=== PATIENT | male | born 1930 | race Caucasian/White ===

== ENCOUNTER 2016-03-18 | Outpatient (CLI) | END 2016-03-18 03:13 | disposition critical access hospital (66) | CPT/HCPCS: A0425; A0427 ==

== ENCOUNTER 2016-03-18 03:37 | Inpatient (IN) | payer MEDICARE ==
[2016-03-18] MEDS ORDERED: SODIUM CHLORIDE 0.9% 500 ML IV STA (04:26)
[2016-03-18] MEDS ORDERED: PROCHLORPERAZINE 10 MG/2 ML VIAL IVP PRN (06:56)
[2016-03-18] MEDS ORDERED: PHYTONADIONE 10 MG/ML AMP PO SCH (06:56)
[2016-03-18] MEDS ORDERED: ACETAMINOPHEN 325 MG TABLET PO PRN (06:56)
[2016-03-18] MEDS ORDERED: HYDROmorphone 1 MG/ML SYRINGE IVP PRN (06:56)
[2016-03-18] MEDS ORDERED: SODIUM CHLORIDE FLUSH 0.9% 10 ML SYRINGE IVP PRN (06:56)
[2016-03-18] MEDS ORDERED: HYDROcod/ACETAM 5/325 MG TABLET PO PRN (06:56)
[2016-03-18] MEDS ORDERED: ONDANSETRON ODT 4 MG TABLET TL PRN (06:56)
[2016-03-18] MEDS ORDERED: SODIUM CHLORIDE 0.9% 1,000 ML IV SCH ×2 (06:56→14:00)
[2016-03-18] MEDS ORDERED: ONDANSETRON 4 MG/2 ML VIAL IVP PRN (06:56)
[2016-03-18] MEDS: PANTOPRAZOLE 40 MG TABLET PO SCH (07:01)
[2016-03-18] MEDS: LEVOTHYROXINE 75 MCG TABLET PO SCH (08:24)
[2016-03-18] MEDS ORDERED: POLYETHYLENE GLYCOL 3350 17 GM PACKET PO SCH (09:00)
[2016-03-18] MEDS: SODIUM CHLORIDE FLUSH 0.9% 10 ML SYRINGE IVP SCH ×4 (11:03→23:48)
[2016-03-18] MEDS: ATENOLOL 25 MG TABLET PO SCH (11:34)
[2016-03-18] MEDS ORDERED: PHYTONADIONE INJ (ADULT) 10 MG in SODIUM CHLORIDE 0.9% 50 ML IV STA (14:12)
[2016-03-18] MEDS ORDERED: PEG 3350/NA SULF,BICARB,CL/KCL 4,000 ML BOTTLE PO ONE (14:30)
[2016-03-18] MEDS ORDERED: DEXTROSE 5%-0.45% NACL 1,000 ML IV SCH (22:00)
[2016-03-19] MEDS: LEVOTHYROXINE 75 MCG TABLET PO SCH (06:09)
[2016-03-19] MEDS: PANTOPRAZOLE 40 MG TABLET PO SCH (06:09)
[2016-03-19] MEDS: ATENOLOL 25 MG TABLET PO SCH (08:13)
[2016-03-19] MEDS ORDERED: LACTATED RINGERS 1,000 ML IV ONE (10:44)
[2016-03-19] MEDS ORDERED: LIDOCAINE-MPF 2% 5 ML VIAL IM ONE (11:50)
[2016-03-19] MEDS ORDERED: PROPOFOL 200 MG/20 ML VIAL IVP ONE (11:50)
[2016-03-19] MEDS ORDERED: GLUCAGON 1 MG/ML VIAL IM ONE (11:50)
[2016-03-19] MEDS ORDERED: SODIUM CHLORIDE FLUSH 0.9% 10 ML SYRINGE IVP PRN (12:25)
[2016-03-19] MEDS ORDERED: HYDROmorphone 1 MG/ML SYRINGE IVP PRN (12:25)
[2016-03-19] MEDS ORDERED: HYDROcod/ACETAM 5/325 MG TABLET PO PRN (12:25)
[2016-03-19] MEDS ORDERED: DEXTROSE 5%-0.45% NACL 1,000 ML IV SCH (12:25)
[2016-03-19] MEDS ORDERED: ACETAMINOPHEN 325 MG TABLET PO PRN (12:25)
[2016-03-19] MEDS ORDERED: PROCHLORPERAZINE 10 MG/2 ML VIAL IVP PRN (12:25)
[2016-03-19] MEDS ORDERED: ONDANSETRON ODT 4 MG TABLET TL PRN (12:25)
[2016-03-19] MEDS ORDERED: ONDANSETRON 4 MG/2 ML VIAL IVP PRN (12:25)
[2016-03-19] MEDS ORDERED: SODIUM CHLORIDE FLUSH 0.9% 10 ML SYRINGE IVP SCH (14:00)
[2016-03-20] MEDS ORDERED: LEVOTHYROXINE 75 MCG TABLET PO SCH (07:00)
[2016-03-20] MEDS ORDERED: PANTOPRAZOLE 40 MG TABLET PO SCH (07:00)
[2016-03-20] MEDS ORDERED: ATENOLOL 25 MG TABLET PO SCH (09:00)
== END 2016-03-19 15:00 | disposition home or self-care (01) | DRG 378 ==
PROC: 0DBP8ZZ Excision of Rectum, Via Natural or Artificial Opening Endoscopic (ICD-10-PCS; principal; 2016-03-19 10:55)
PROC: 0DBN8ZZ Excision of Sigmoid Colon, Via Natural or Artificial Opening Endoscopic (ICD-10-PCS; principal; 2016-03-19 10:55)
DX: K92.1 Melena (principal); D62 Acute posthemorrhagic anemia; N17.9 Acute kidney failure, unspecified; N18.4 Chronic kidney disease, stage 4 (severe); K57.30 Diverticulosis of large intestine without perforation or abscess without bleeding; K63.5 Polyp of colon; D12.8 Benign neoplasm of rectum; I95.9 Hypotension, unspecified; I48.2 Chronic atrial fibrillation; E11.22 Type 2 diabetes mellitus with diabetic chronic kidney disease; I12.9 Hypertensive chronic kidney disease with stage 1 through stage 4 chronic kidney disease, or unspecified chronic kidney disease; E03.9 Hypothyroidism, unspecified; Z91.81 History of falling; Z79.01 Long term (current) use of anticoagulants
CPT/HCPCS: 45384; 45385; G0378

== ENCOUNTER 2016-03-23 | Outpatient (CLI) | END 2016-03-23 18:53 | disposition EMS.NT ==

== ENCOUNTER 2016-03-26 | Outpatient (CLI) | payer MEDICARE | END 2016-03-26 11:54 | disposition critical access hospital (66) | CPT/HCPCS: A0425; A0429 ==

== ENCOUNTER 2016-03-26 12:08 | Inpatient (IN) | payer MEDICARE ==
[2016-03-26] MEDS ORDERED: SODIUM CHLORIDE 0.9% 1,000 ML IV ONE (13:15)
[2016-03-26] MEDS ORDERED: SODIUM CHLORIDE 0.9% 500 ML IV ONE (13:15)
[2016-03-26] MEDS ORDERED: SODIUM CHLORIDE FLUSH 0.9% 10 ML SYRINGE IVP PRN (16:34)
[2016-03-26] MEDS ORDERED: traMADol 50 MG TABLET PO PRN (16:34)
[2016-03-26] MEDS: SODIUM CHLORIDE 0.9% 1,000 ML IV SCH (17:45)
[2016-03-26] MEDS: PANTOPRAZOLE 40 MG VIAL IVP SCH (17:45)
[2016-03-26] MEDS ORDERED: PHYTONADIONE INJ (ADULT) 5 MG in SODIUM CHLORIDE 0.9% 50 ML IV ONE (18:00)
[2016-03-26] MEDS: SODIUM CHLORIDE FLUSH 0.9% 10 ML SYRINGE IVP SCH (21:06)
[2016-03-27] MEDS: SODIUM CHLORIDE FLUSH 0.9% 10 ML SYRINGE IVP SCH ×3 (07:21→18:04)
[2016-03-27] MEDS: LEVOTHYROXINE 100 MCG TABLET PO SCH (07:39)
[2016-03-27] MEDS: PANTOPRAZOLE 40 MG VIAL IVP SCH ×2 (07:39→18:04)
[2016-03-27] MEDS: ATENOLOL 25 MG TABLET PO SCH (08:29)
[2016-03-27] MEDS: POLYETHYLENE GLYCOL 3350 17 GM PACKET PO SCH (08:44)
[2016-03-27] MEDS: hydroCHLOROthiazide 12.5 MG CAPSULE PO SCH (08:44)
[2016-03-27] MEDS ORDERED: ATENOLOL 25 MG TABLET PO SCH (09:00)
[2016-03-27] MEDS: SODIUM CHLORIDE 0.9% 1,000 ML IV SCH ×2 (11:05)
[2016-03-27] MEDS ORDERED: diphenhydrAMINE INJ 50 MG/ML VIAL IVP ONE (19:30)
[2016-03-27] MEDS: SODIUM/POTASSIUM/MAG SULFATES 354 ML PREP KIT PO SCH (20:50)
[2016-03-28] MEDS: SODIUM CHLORIDE 0.9% 1,000 ML IV SCH ×3 (00:11→16:38)
[2016-03-28] MEDS ORDERED: LORazepam 2 MG/ML SYRINGE IVP STA (02:29)
[2016-03-28] MEDS ORDERED: HALOPERIDOL 5 MG/ML VIAL IM STA (02:29)
[2016-03-28] MEDS ORDERED: HALOPERIDOL 5 MG/ML VIAL ONE (02:37)
[2016-03-28] MEDS ORDERED: HALOPERIDOL 5 MG/ML VIAL IM SCH (02:57)
[2016-03-28] MEDS: SODIUM/POTASSIUM/MAG SULFATES 354 ML PREP KIT PO SCH (05:09)
[2016-03-28] MEDS: LEVOTHYROXINE 100 MCG TABLET PO SCH (06:33)
[2016-03-28] MEDS: PANTOPRAZOLE 40 MG VIAL IVP SCH ×2 (06:33→19:21)
[2016-03-28] MEDS: SODIUM CHLORIDE FLUSH 0.9% 10 ML SYRINGE IVP SCH ×2 (06:33→14:42)
[2016-03-28] MEDS ORDERED: LIDOCAINE-MPF 2% 5 ML VIAL IM ONE (10:20)
[2016-03-28] MEDS ORDERED: PROPOFOL 200 MG/20 ML VIAL IVP ONE (10:20)
[2016-03-28] MEDS ORDERED: SODIUM CHLORIDE 0.9% 1,000 ML IV ONE (10:21)
[2016-03-28] MEDS: POLYETHYLENE GLYCOL 3350 17 GM PACKET PO SCH (12:12)
[2016-03-28] MEDS ORDERED: HALOPERIDOL 5 MG/ML VIAL IM ONE (14:22)
[2016-03-28] MEDS ORDERED: LORazepam 2 MG/ML SYRINGE IVP PRN (14:23)
[2016-03-28] MEDS: ATENOLOL 25 MG TABLET PO SCH (14:43)
[2016-03-28] MEDS: hydroCHLOROthiazide 12.5 MG CAPSULE PO SCH (14:43)
[2016-03-29] MEDS: SODIUM CHLORIDE 0.9% 1,000 ML IV SCH (03:34)
[2016-03-29] MEDS: LEVOTHYROXINE 100 MCG TABLET PO SCH (06:17)
[2016-03-29] MEDS: SODIUM CHLORIDE FLUSH 0.9% 10 ML SYRINGE IVP SCH (07:11)
[2016-03-29] MEDS: ATENOLOL 25 MG TABLET PO SCH (10:21)
[2016-03-29] MEDS ORDERED: amLODIPine 5 MG TABLET PO ONE ×2 (10:30)
[2016-03-29] MEDS ORDERED: cloNIDine 0.1 MG TABLET PO SCH (11:00)
== END 2016-03-29 10:30 | disposition home or self-care (01) | DRG 309 ==
PROC: 30233N1 Transfusion of Nonautologous Red Blood Cells into Peripheral Vein, Percutaneous Approach (ICD-10-PCS; 2016-03-26)
PROC: 30233K1 Transfusion of Nonautologous Frozen Plasma into Peripheral Vein, Percutaneous Approach (ICD-10-PCS; 2016-03-27)
PROC: 30233N1 Transfusion of Nonautologous Red Blood Cells into Peripheral Vein, Percutaneous Approach (ICD-10-PCS; 2016-03-27)
PROC: 30233N1 Transfusion of Nonautologous Red Blood Cells into Peripheral Vein, Percutaneous Approach (ICD-10-PCS; 2016-03-28)
PROC: 0DBP8ZZ Excision of Rectum, Via Natural or Artificial Opening Endoscopic (ICD-10-PCS; principal; 2016-03-28 10:35)
PROC: 0DBK8ZZ Excision of Ascending Colon, Via Natural or Artificial Opening Endoscopic (ICD-10-PCS; principal; 2016-03-28 10:35)
DX: I48.2 Chronic atrial fibrillation (principal); K92.1 Melena; E86.0 Dehydration; N17.9 Acute kidney failure, unspecified; N18.9 Chronic kidney disease, unspecified; I48.91 Unspecified atrial fibrillation; D50.0 Iron deficiency anemia secondary to blood loss (chronic); I12.9 Hypertensive chronic kidney disease with stage 1 through stage 4 chronic kidney disease, or unspecified chronic kidney disease; Z85.828 Personal history of other malignant neoplasm of skin; N18.3 Chronic kidney disease, stage 3 (moderate); Z98.890 Other specified postprocedural states; R45.1 Restlessness and agitation; E03.9 Hypothyroidism, unspecified; E11.9 Type 2 diabetes mellitus without complications; D12.2 Benign neoplasm of ascending colon; K62.1 Rectal polyp; K64.8 Other hemorrhoids; Q27.33 Arteriovenous malformation of digestive system vessel; K57.30 Diverticulosis of large intestine without perforation or abscess without bleeding; Z66 Do not resuscitate; Z78.1 Physical restraint status

== ENCOUNTER 2016-10-14 16:10 | Outpatient (CLI) | payer MEDICARE | END 2016-10-14 16:11 | disposition critical access hospital (66) | LOC: EMS 16:10 | PROVIDERS: ATTEND Surgery | DX: R29.810 Facial weakness (principal); R53.1 Weakness; R40.1 Stupor; R47.9 Unspecified speech disturbances | CPT/HCPCS: A0425; A0427 ==

== ENCOUNTER 2016-10-14 16:22 | Inpatient (IN) | payer MEDICARE ==
--- NOTE | 2016-10-14 16:32 | ED Physician Documentation ---
PD HPI FOCAL NEURO - Stated complaint Stated Complaint: POSS STROKE - Chief complaint Chief Complaint: Neuro - History obtained from History obtained from: EMS - History of Present Illness Timing - onset: Other (86-year-old gentleman who is unable to provide a history so all the history is from the paramedics and review of the chart. He may or may not be on Coumadin, it looks like he may have been taken off after an episode of GI bleeding in March. He went into the bathroom at 2:45 PM and was normal at that time, he was in there for quite some time and found in there with a skin tear on his elbow, the right, and obvious strokelike symptoms. 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 HEENT: Tonsil/Adenoidectomy Derm: Skin cancer surgery - Present Medications Home Medications: Ambulatory Orders Medication Instructions Recorded Confirmed traMADol [Ultram] 50 mg PO QID PRN 03/18/16 10/14/16 Ferrous Sulfate [Iron] 325 mg PO DAILY 03/26/16 10/14/16 Levothyroxine [Synthroid] 100 mcg PO QDAC 03/26/16 10/14/16 hydroCHLOROthiazide [Hydrodiuril] 12.5 mg PO DAILY 03/26/16 10/14/16 Lorazepam [Ativan] 1 mg PO BID PRN #6 tablet 03/29/16 10/14/16 - Allergies Allergies/Adverse Reactions: Allergies Allergy/AdvReac Type Severity Reaction Status Date / Time No Known Drug Allergies Allergy Verified 03/18/16 04:01 - Social History Does the pt smoke?: No Smoking Status: Never smoker Does the pt drink ETOH?: Yes Does the pt have substance abuse?: No - Immunizations Immunizations are current?: Yes - POLST Patient has POLST: No PD ED PE NORMAL - Vitals Vital signs reviewed: Yes - General General: Other (He is alert, looking around but only to the left with an obvious left gaze preference. He does not follow any commands but is moving the left side of his body spontaneously.) - HEENT HEENT: PERRL, EOMI - Neck Neck: Supple, no meningeal sign, No bony TTP - Cardiac Cardiac: RRR, No murmur - Respiratory Respiratory: No respiratory distress, Clear bilaterally - Abdomen Abdomen: Soft, Non tender - Extremities Extremities: No edema, No calf tenderness / cord NIHSS - Time Time: 16:22 - Level of Consciousness Level of consciousness: (1) Not alert, but arousable by minor stimulation to obey, or answer LOC Questions: (2) Answers neither correct LOC Commands: (2)Performs none - Gaze Best Gaze: (2) Forced deviation - Visual Visual: (2) Complete Hemianopia (Does not respond to threat on the right but does the left) - Facial Palsy Facial Palsy: (3) Complete paralysis (Of the right) - Motor Arms (both separate) Motor Arm (right): (4) No movement Motor Arm (left): (0) No drift - Motor Legs (both separate) Motor Leg (right): (4) No movement Motor Leg (left): (0) No drift - Limb Ataxia Limb Ataxia: (0) Absent - Sensory Sensory: (2) Ayqoqh-ht-wyjxb loss (Right upper and lower extremity) - Best Language Best Language: (3) Mute, global aphasia - Dysarthria Dysarthria: (0) Normal - Extinction and Inattention (formally neg Extinction and inattention: (2) Profound petra-inattention or extinction to more than one modality - Total Score/Results Total Score/Result: 27 Results - Vitals Vitals: Vital Signs - 24 hr 10/14/16 10/14/16 16:24 16:47 Heart Rate 88 89 Respiratory 18 18 Rate Blood Pressure 142/76 H 147/89 H O2 Saturation 95 96 Oxygen O2 Source Room air - EKG (time done) 1648 Rate: Rate (enter#) (92) Rhythm: Atrial fibrillation [place]: Normal Intervals: Normal VT QRS: Normal Ischemia: Non specific changes Computer interpretation: Agree with computer - Labs Labs: Laboratory Tests 10/14/16 10/14/16 10/14/16 16:25 16:40 16:40 WBC 9.4 RBC 4.66 L Hgb 13.8 L Hct 41.6 L MCV 89.3 MCH 29.7 MCHC 33.2 RDW 14.3 Plt Count 253 MPV 7.1 L Neut # 6.2 Lymph # 1.9 [place] # 0.8 Eos # 0.4 Baso # 0.1 Absolute Nucleated RBC 0.00 Nucleated RBCs 0.0 Whole Blood INR 1.2 Sodium 140 Potassium 3.6 Chloride 104 Carbon Dioxide 26 Anion Gap 10.0 BUN 30 H Creatinine 2.1 H Estimated GFR (MDRD) 30 L Glucose 109 H Calcium 9.5 Total Bilirubin 0.8 AST 16 ALT 12 Alkaline Phosphatase 68 Total Protein 7.8 Albumin 4.0 Globulin 3.8 Albumin/Globulin Ratio 1.1 Lipase 41 - Rads (name of study) CT Head Radiology: EMP read contemporaneously (Left hyperdensa MCA without hemorrhage) PD MEDICAL DECISION MAKING - ED course ED course: 86-year-old gentleman with history of GI bleeding 7 months ago, not anticoagulated at this juncture with debilitating stroke presents within 2 hours. Family not available on initial arrival but arrived shortly thereafter and confirmed not on coumadin and case discussed by phone with Dr. Abbasi at [place] [facility] who recommends tPA. After discussion of the risks and benefits, risks including and bleeding, the family did want to go ahead with TPA, but did not want him transferred for interventional strategy (which Dr Abbasi recommended), and agreed that if he were to worsen, or bleed that he should be made comfortable and not be treated aggressively at that juncture. Daughter and understand that regardless of treatment or approach he is at high risk of or decompensation and verbalize the high risks of tPA including intracranial or GI bleeding. Tpa bolus at 5:11pm - Critical Care Time(min): 45 Time Includes: Direct patient care, Review records, Reassess patient, Document care, Coordinate care, Medical consult, Family consult for [facility] Data interpretation: Labs, Pulse ox Procedures included in critical care time: Peripheral IV Procedures excluded from critical care time: EKG Departure - Departure Disposition: 66 [facility] DC/Xfer Clinical Impression: Cerebrovascular accident (CVA) Qualifiers: CVA mechanism: embolism Precerebral and cerebral artery: middle cerebral artery Laterality of affected vessel: left Qualified Code(s): I63.412 - Cerebral infarction due to embolism of left middle cerebral artery Condition: Critical Discharge Date/Time: 10/14/16 17:35
[2016-10-14 16:48] LABS: BASOPHILS # (AUTO) 0.1 10^3/uL (0.0-0.1); BASOPHILS % (AUTO) 1.1 %; EOSINOPHILS # (AUTO) 0.4 10^3/uL (0.0-0.7); EOSINOPHILS % (AUTO) 4.3 %; HCT - HEMATOCRIT 41.6 % (42.0-52.0); HGB - HEMOGLOBIN 13.8 g/dL (14.0-18.0); LYMPHOCYTES # (AUTO) 1.9 10^3/uL (1.5-3.5); LYMPHOCYTES % (AUTO) 19.9 %; MEAN CORPUSCULAR HEMOGLOBIN 29.7 pg (27.0-31.0); MEAN CORPUSCULAR HGB CONC 33.2 g/dL (32.0-36.0); MEAN CORPUSCULAR VOLUME 89.3 fL (80.0-94.0); MEAN PLATELET VOLUME 7.1 fL (7.4-11.4); MONOCYTES # (AUTO) 0.8 10^3/uL (0.0-1.0); MONOCYTES % (AUTO) 8.8 %; NEUTROPHILS # (AUTO) 6.2 10^3/uL (1.5-6.6); NEUTROPHILS % (AUTO) 65.9 %; RED BLOOD COUNT 4.66 10^6/uL (4.70-6.10); RED CELL DISTRIBUTION WIDTH 14.3 % (12.0-15.0); UNCORRECTED WHITE BLOOD COUNT 9.4 x10^3/uL; WHITE BLOOD COUNT 9.4 x10^3/uL (4.8-10.8)
--- NOTE | 2016-10-14 16:51 | CT Preliminary Report ---
Exam: CT Head W/O Stroke Protocol IMPRESSION: 1. Asymmetric, increased density of left middle cerebral artery. This can represent acute thrombus an d early noncontrast CT finding of a large left MCA stroke. This finding can be artifactual and should be correlated with clinical symptoms. 2. No intracranial hemorrhage, mass effect, or localizing edema. 3. Chronic volume loss. RADIA The call report notification system was initiated by Dr. Marco Bourne at 16:45 hrs on 7. The above findings were discussed with Milena by Dr. Marco Bourne at 16:49 hrs on 10/14/16. SITE ID: [id number]
--- NOTE | 2016-10-14 16:54 | CT Report ---
EXAM: CT HEAD EXAM DATE: 10/14/2016 04:34 PM. CLINICAL HISTORY: Found down. Altered mental status. COMPARISON: 02/05/2016. TECHNIQUE: Multiaxial CT images were obtained from the foramen magnum to the vertex. IV contrast: Non e. Reformats: Coronal. In accordance with CT protocol optimization, one or more of the following dose reduction techniques w ere utilized for this exam: automated exposure control, adjustment of mA and/or KV based on patient s ize, or use of iterative reconstructive technique. FINDINGS: Parenchyma: There is generalized prominence in size of ventricles and sulci consistent with volume lo ss. No asymmetric parenchymal edema. Gee-white matter differentiation is preserved. No midline shift . Extraaxial Spaces: There is prominence to the extra-axial space, unchanged and most likely representi ng chronic volume loss. No subdural or epidural acute hemorrhage. Ventricles: The ventricles are symmetric in size and normal in location. Sinuses: Imaged paranasal sinuses, orbits, and mastoids show no significant abnormality. Bones: No evidence of fracture or calvarial defect. Other: There is asymmetric increased density of the left middle cerebral artery. IMPRESSION: 1. Asymmetric, increased density of left middle cerebral artery. This can represent acute thrombus an d early noncontrast CT finding of a large left MCA stroke. This finding can be artifactual and should be correlated with clinical symptoms. 2. No intracranial hemorrhage, mass effect, or localizing edema. 3. Chronic volume loss. RADIA The call report notification system was initiated by Dr. Marco Bourne at 16:45 hrs on 7. The above findings were discussed with Milena by Dr. Marco Bourne at 16:49 hrs on 10/14/16. Referring Provider Line: [phone] SITE ID: [id number]
[2016-10-14 17:01] LABS: ALBUMIN/GLOBULIN RATIO 1.1 (1.0-2.2); BILIRUBIN,TOTAL 0.8 mg/dL (0.2-1.0); CALCIUM 9.5 mg/dL (8.5-10.3); CREATININE 2.1 mg/dL (0.6-1.2); POTASSIUM 3.6 mmol/L (3.5-5.0); TOTAL PROTEIN 7.8 g/dL (6.7-8.2)
[2016-10-14] MEDS ORDERED: ALTEPLASE IV STA (17:01)
[2016-10-14] MEDS ORDERED: WATER FOR INJECTION STERILE IV STA (17:01)
[2016-10-14] MEDS ORDERED: ALTEPLASE 7.7 MG in WATER FOR INJECTION,STERILE 7.7 ML IV STA (17:01)
[2016-10-14] MEDS ORDERED: MORPHINE 2 MG/ML SYRINGE IVP PRN (17:02)
[2016-10-14] MEDS ORDERED: ONDANSETRON 4 MG/2 ML VIAL IVP PRN (17:02)
[2016-10-14] MEDS ORDERED: ONDANSETRON ODT 4 MG TABLET TL PRN (17:02)
[2016-10-14] MEDS: SODIUM CHLORIDE 0.9% 1,000 ML IV SCH (18:00)
[2016-10-14] MEDS ORDERED: MIN OIL/DIMETHICON/COCONUT OIL 92 GM TUBE TOP ONE (20:09)
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
[2016-10-14] MEDS ORDERED: PANTOPRAZOLE 40 MG VIAL IVP SCH (20:24)
[2016-10-14 21:12] LABS: HCT - HEMATOCRIT 38.4 % (42.0-52.0); HGB - HEMOGLOBIN 12.8 g/dL (14.0-18.0); MEAN CORPUSCULAR HEMOGLOBIN 29.9 pg (27.0-31.0); MEAN CORPUSCULAR HGB CONC 33.5 g/dL (32.0-36.0); MEAN CORPUSCULAR VOLUME 89.3 fL (80.0-94.0); MEAN PLATELET VOLUME 7.5 fL (7.4-11.4); NEUTROPHILS # (AUTO) 9.1 10^3/uL (1.5-6.6); RED BLOOD COUNT 4.3 10^6/uL (4.70-6.10); RED CELL DISTRIBUTION WIDTH 14.5 % (12.0-15.0); WHITE BLOOD COUNT 12.3 x10^3/uL (4.8-10.8)
[2016-10-14] MEDS: MIN OIL/DIMETHICON/COCONUT OIL 92 GM TUBE TOP SCH (21:16)
[2016-10-14] MEDS: SODIUM CHLORIDE FLUSH 0.9% 10 ML SYRINGE IVP SCH (21:16)
[2016-10-15 06:01] LABS: BASOPHILS # (AUTO) 0.1 10^3/uL (0.0-0.1); BASOPHILS % (AUTO) 1.1 %; EOSINOPHILS # (AUTO) 0.4 10^3/uL (0.0-0.7); EOSINOPHILS % (AUTO) 3.3 %; HGB - HEMOGLOBIN 12.6 g/dL (14.0-18.0); LYMPHOCYTES # (AUTO) 1.9 10^3/uL (1.5-3.5); LYMPHOCYTES % (AUTO) 17.8 %; MEAN CORPUSCULAR HGB CONC 33.2 g/dL (32.0-36.0); MEAN CORPUSCULAR VOLUME 90.4 fL (80.0-94.0); MEAN PLATELET VOLUME 7.8 fL (7.4-11.4); MONOCYTES % (AUTO) 9.5 %; NEUTROPHILS # (AUTO) 7.3 10^3/uL (1.5-6.6); NEUTROPHILS % (AUTO) 68.3 %; RED CELL DISTRIBUTION WIDTH 14.3 % (12.0-15.0); UNCORRECTED WHITE BLOOD COUNT 10.7 x10^3/uL; WHITE BLOOD COUNT 10.7 x10^3/uL (4.8-10.8)
[2016-10-15 06:16] LABS: CALCIUM 8.8 mg/dL (8.5-10.3); CREATININE 1.9 mg/dL (0.6-1.2); POTASSIUM 3.7 mmol/L (3.5-5.0)
[2016-10-15] MEDS: SODIUM CHLORIDE FLUSH 0.9% 10 ML SYRINGE IVP SCH ×3 (06:33→22:12)
[2016-10-15] MEDS: SODIUM CHLORIDE 0.9% 1,000 ML IV SCH ×2 (08:12→08:13)
[2016-10-15] MEDS: MIN OIL/DIMETHICON/COCONUT OIL 92 GM TUBE TOP SCH ×2 (08:13→21:38)
[2016-10-15] MEDS: PANTOPRAZOLE 40 MG VIAL IVP SCH ×2 (08:13→21:37)
--- NOTE | 2016-10-15 15:27 | PROVIDER PROGRESS NOTE ---
Assessment/Plan - Problem List (1) Cerebrovascular accident (CVA) Qualifiers: CVA mechanism: embolism Precerebral and cerebral artery: middle cerebral artery Laterality of affected vessel: left Qualified Code(s): I63.412 - Cerebral infarction due to embolism of left middle cerebral artery Assessment/Plan: Pt received tPa at 5 pm yesterday. Minimal to no improvement in neuro status. Family did not want transfer to [place] yesterday, but today they decided to request transfer. I contacted Neurologist On-Call at [facility] (Dr Rodriguez) and reviewed Pt's case. He recommended repeat brain imaging at 24 hours post-CVA, if no bleeding to start ASA then, no Coumadin for up to 8 weeks (due to risk of such a large stroke becoming a hemorrhagic stroke, Pt not a candidate for interventional radiology thrombectomy procedure due to age and already had DNR status. BP is running 140 and no BP meds ordered, as will allow permissive HTN during CVA. Will obtain Echo and Carotid Doppler, and swallowing eval to consider po diet and ASA, if no bleeding by brain MRI. (2) Chronic a-fib Assessment/Plan: HR was controlled at admission, now increasing, since po B=tessa not given. Will add iv med for rate control. Coumadin had been stopped months ago due to GI bleed. (3) HTN (hypertension) Qualifiers: Hypertension type: essential hypertension Qualified Code(s): I10 - Essential (primary) hypertension Assessment/Plan: Will allow permissive HTN, to systolic BP of 180 max. (4) Acute on chronic renal insufficiency Assessment/Plan: GFR is 30-34. Pt currently off HCTZ and getting saline hydration. Will monitor BMP. (5) Agitation Assessment/Plan: ED notes state that home meds were Tramadol and Ativan. Will hold off on marked sedation to allow neuro checks, but will need some sedative to undergo repeat brain imaging. (6) Hypothyroidism Assessment/Plan: Pt not on Synthroid since admission due to NPO status. (7) Gastrointestinal bleed Qualifiers: GI bleed type/associated pathology: unspecified gastrointestinal hemorrhage type Qualified Code(s): K92.2 - Gastrointestinal hemorrhage, unspecified Assessment/Plan: Pt has Hx of GI bleed and had been off Coumadin several months. RN informed me that Pt had a BM which had a maroon color, but was not heme tested. Will check BM for occult blood before any ASA started for CVA management. Monitor CBC. - Current Meds Current Meds: Current Medications Generic Name Dose Route Start Last Admin Trade Name Rosita PRN Reason Stop Dose Admin Mineral Oil 1 applic 10/14/16 21:00 10/15/16 08:13 Cavilon TOP 1 applic BID ERNA Administration Pantoprazole Sodium 40 mg 10/15/16 09:00 10/15/16 08:13 Protonix IVP 40 mg BID ERNA Administration Sodium Chloride 10 ml 10/14/16 22:00 10/15/16 15:22 Normal Saline Flush 0.9% IVP Not Given Q8HR ERNA - Lab Result Fish Bone Diagrams: 10/15/16 15:35 10/15/16 05:01 - Additional Planning My Orders: My Active Orders 10/15/16 Brain W/O [MRI] Routine Carotid Doppler Complete [US] Routine 10/15/16 12:00 Echo [Echo Transthoracic Complete] [ECHO] Routine 10/15/16 12:58 ED Hemoccult/Gastroccult ONCE 10/16/16 07:00 BMP - BASIC METABOLIC PANEL [CHEM] Routine MAGNESIUM [CHEM] Routine Subjective - Subjective Patient Reports: Resting Comfortably, Other (Pt still has L gaze preference and does move his head and neck.) Nursing Reports: Other (Garbled speech.) Objective Vital Signs: Vital Signs - 24 hr 10/14/16 10/14/16 10/14/16 17:18 17:19 19:00 Temperature 35.8 C L Heart Rate 72 70 Heart Rate [ 88 Monitoring electrodes] Respiratory 16 18 16 Rate Blood Pressure 143/76 H 135/60 H Blood Pressure 153/69 H [Left Brachial artery] Blood Pressure [Right Ankle] O2 Saturation 95 98 97 10/14/16 10/14/16 10/14/16 20:00 21:00 22:00 Temperature 36.7 C 36.5 C 36.4 C L Heart Rate Heart Rate [ 91 79 84 Monitoring electrodes] Respiratory 16 14 21 Rate Blood Pressure Blood Pressure 98/85 H 107/69 90/77 [Left Brachial artery] Blood Pressure [Right Ankle] O2 Saturation 94 99 96 10/14/16 10/15/16 10/15/16 22:57 00:00 01:00 Temperature 36.6 C Heart Rate Heart Rate [ 72 87 107 H Monitoring electrodes] Respiratory 19 19 22 Rate Blood Pressure Blood Pressure 131/70 H 137/77 H 137/82 H [Left Brachial artery] Blood Pressure [Right Ankle] O2 Saturation 91 L 96 96 10/15/16 10/15/16 10/15/16 02:00 03:00 03:03 Temperature Heart Rate Heart Rate [ 88 106 H Monitoring electrodes] Respiratory 19 21 Rate Blood Pressure Blood Pressure 148/76 H 130/119 H [Left Brachial artery] Blood Pressure 108/85 H [Right Ankle] O2 Saturation 96 96 10/15/16 10/15/16 10/15/16 04:00 05:00 05:57 Temperature 36 C L Heart Rate Heart Rate [ 85 85 95 Monitoring electrodes] Respiratory 22 22 18 Rate Blood Pressure Blood Pressure [Left Brachial artery] Blood Pressure 98/66 106/85 H 106/86 H [Right Ankle] O2 Saturation 95 96 98 10/15/16 10/15/16 10/15/16 06:41 07:51 08:46 Temperature 37 C Heart Rate Heart Rate [ 79 95 94 Monitoring electrodes] Respiratory 16 20 17 Rate Blood Pressure Blood Pressure [Left Brachial artery] Blood Pressure 122/79 121/82 H 110/73 [Right Ankle] O2 Saturation 98 96 97 10/15/16 10/15/16 10/15/16 09:42 11:00 12:00 Temperature 37 C 37 C Heart Rate Heart Rate [ 90 102 H 99 Monitoring electrodes] Respiratory 18 22 20 Rate Blood Pressure Blood Pressure [Left Brachial artery] Blood Pressure 108/87 H 98/78 149/85 H [Right Ankle] O2 Saturation 98 94 96 10/15/16 10/15/16 10/15/16 12:45 13:48 15:00 Temperature 37.2 C Heart Rate Heart Rate [ 102 H 86 113 H Monitoring electrodes] Respiratory 17 20 20 Rate Blood Pressure Blood Pressure [Left Brachial artery] Blood Pressure 158/89 H 135/88 H 167/82 H [Right Ankle] O2 Saturation 93 96 95 Oxygen O2 Source Room air I&O (Last 24 Hrs): Intake and Output Totals x24h 10/13/16 10/14/16 10/15/16 23:59 23:59 23:59 Intake Total 500 1400 Balance 500 1400 General: Other (In no visible distress, gazing leftward, moves left arm and leg only.) HEENT: Other (Right eye ptosis. Pupilary response sluggish.) Neck: Supple Neuro: Focal Deficits (Right side flaccid paralysis. R sided (+) Babinsky), Speech Slurred Cardiovascular: Other (Distant HS, irreg, no murmur.) Respiratory: No respiratory distress Abdomen: Soft Extremities: No clubbing, No edema, Other (Changes ofarthritis of fingers and toes.) - Results Results: Laboratory Results WBC 10.7 x10^3/uL (4.8-10.8) 10/15/16 05:01 RBC 4.20 10^6/uL (4.70-6.10) L 10/15/16 05:01 Hgb 12.6 g/dL (14.0-18.0) L 10/15/16 05:01 Hct 38.0 % (42.0-52.0) L 10/15/16 05:01 MCV 90.4 fL (80.0-94.0) 10/15/16 05:01 MCH 30.0 pg (27.0-31.0) 10/15/16 05:01 MCHC 33.2 g/dL (32.0-36.0) 10/15/16 05:01 RDW 14.3 % (12.0-15.0) 10/15/16 05:01 Plt Count 240 10^3/uL (130-450) 10/15/16 05:01 MPV 7.8 fL (7.4-11.4) 10/15/16 05:01 Neut # 7.3 10^3/uL (1.5-6.6) H 10/15/16 05:01 Lymph # 1.9 10^3/uL (1.5-3.5) 10/15/16 05:01 Placer # 1.0 10^3/uL (0.0-1.0) 10/15/16 05:01 Eos # 0.4 10^3/uL (0.0-0.7) 10/15/16 05:01 Baso # 0.1 10^3/uL (0.0-0.1) 10/15/16 05:01 Absolute Nucleated RBC 0.00 x10^3/uL 10/15/16 05:01 Nucleated RBCs 0.0 /100WBC 10/15/16 05:01 Whole Blood INR 1.2 (0.8-1.2) 10/14/16 16:25 Sodium 141 mmol/L (135-145) 10/15/16 05:01 Potassium 3.7 mmol/L (3.5-5.0) 10/15/16 05:01 Chloride 107 mmol/L (101-111) 10/15/16 05:01 Carbon Dioxide 23 mmol/L (21-32) 10/15/16 05:01 Anion Gap 11.0 (6-13) 10/15/16 05:01 BUN 29 mg/dL (6-20) H 10/15/16 05:01 Creatinine 1.9 mg/dL (0.6-1.2) H 10/15/16 05:01 Estimated GFR (MDRD) 34 (>89) L 10/15/16 05:01 Glucose 108 mg/dL (70-100) H 10/15/16 05:01 Calcium 8.8 mg/dL (8.5-10.3) 10/15/16 05:01 Total Bilirubin 0.8 mg/dL (0.2-1.0) 10/14/16 16:40 AST 16 IU/L (10-42) 10/14/16 16:40 ALT 12 IU/L (10-60) 10/14/16 16:40 Alkaline Phosphatase 68 IU/L (42-121) 10/14/16 16:40 Total Protein 7.8 g/dL (6.7-8.2) 10/14/16 16:40 Albumin 4.0 g/dL (3.2-5.5) 10/14/16 16:40 Globulin 3.8 g/dL (2.1-4.2) 10/14/16 16:40 Albumin/Globulin Ratio 1.1 (1.0-2.2) 10/14/16 16:40 Lipase 41 U/L (22-51) 10/14/16 16:40 - Procedures Procedures: Procedures EXCISION OF ASCENDING COLON, ENDO (03/27/16) EXCISION OF RECTUM, ENDO (03/27/16) EXCISION OF SIGMOID COLON, ENDO (03/19/16) REPLACEMENT OF RIGHT LENS WITH SYNTH SUB, PERC APPROACH (07/06/15) TRANSFUSE NONAUT FROZEN PLASMA IN PERIPH VEIN, PERC (03/27/16) TRANSFUSE NONAUT RED BLOOD CELLS IN PERIPH VEIN, PERC (03/27/16)
[2016-10-15 15:40] LABS: HCT - HEMATOCRIT 35.5 % (42.0-52.0); MEAN CORPUSCULAR HGB CONC 33.8 g/dL (32.0-36.0); MEAN CORPUSCULAR VOLUME 88.8 fL (80.0-94.0); MEAN PLATELET VOLUME 7.3 fL (7.4-11.4); NEUTROPHILS # (AUTO) 7.2 10^3/uL (1.5-6.6); NEUTROPHILS % (AUTO) 69.5 %; RED CELL DISTRIBUTION WIDTH 14.1 % (12.0-15.0); WHITE BLOOD COUNT 10.3 x10^3/uL (4.8-10.8)
[2016-10-15] MEDS ORDERED: LORazepam 2 MG/ML SYRINGE IVP PRN (16:00)
[2016-10-15 18:23] LABS: HCT - HEMATOCRIT 38.5 % (42.0-52.0); HGB - HEMOGLOBIN 12.9 g/dL (14.0-18.0); MEAN CORPUSCULAR HEMOGLOBIN 30.1 pg (27.0-31.0); MEAN CORPUSCULAR HGB CONC 33.4 g/dL (32.0-36.0); MEAN CORPUSCULAR VOLUME 90.1 fL (80.0-94.0); MEAN PLATELET VOLUME 7.4 fL (7.4-11.4); NEUTROPHILS % (AUTO) 68.8 %; RED BLOOD COUNT 4.27 10^6/uL (4.70-6.10); RED CELL DISTRIBUTION WIDTH 14.4 % (12.0-15.0); WHITE BLOOD COUNT 10.2 x10^3/uL (4.8-10.8)
--- NOTE | 2016-10-15 20:31 | MRI Preliminary Report ---
Exam: MRI Brain W/O Impressions: 1. Subacute left MCA including anterior left temporal lobe, posterior left insula, retrolenticular le ft white matter, left basal ganglia ischemic stroke without hemorrhage or mass effect. 2. 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 Critical result: Findings discussed immediately with Dr. Perez by phone at 10/15/2016 at 2029 hrs. RADIA SITE ID: [id number]
--- NOTE | 2016-10-15 20:34 | MRI Report ---
EXAM: MRI BRAIN WITHOUT CONTRAST EXAM DATE: 10/15/2016 04:29 PM. CLINICAL HISTORY: Acute CVA, s/p tpa on 10/14/16. COMPARISON: Prior CT head 10/14/2016 at 1633 hrs.. TECHNIQUE: Multiplanar, multisequence T1-weighted and fluid-sensitive MR sequences of the brain were performed. Sequences optimized for routine evaluation. Other: None. IV Contrast: None. Findings: Relevant images are indicated (image number, series number). Diffusion restriction present left basal ganglia, left caudate head, retrolenticular left white matte r, anterior left temporal lobe, with corresponding low signal ADC, increased signal seen on axial FLA IR consistent with subacute ischemic stroke left basal ganglia, anterior left temporal lobe. There is no hemorrhage or mass effect. Marked generalized cortical atrophy, moderate to marked compensatory v entricular enlargement. Basal cisterns patent. 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 Orbital contents negative, patient status post right lens surgery. Paranasal sinuses, mastoid air william ls are unremarkable. Moderate midbrain atrophy. Pituitary, infundibulum unremarkable. Craniocervical junction, limited kevyn luation upper cervical cord negative. Impressions: 1. Subacute left MCA including anterior left temporal lobe, posterior left insula, retrolenticular le ft white matter, left basal ganglia ischemic stroke without hemorrhage or mass effect. 2. 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 Critical result: Findings discussed immediately with Dr. Perez by phone at 10/15/2016 at 2029 hrs. [facility] Referring Provider Line: [phone] SITE ID: [id number]
[2016-10-15] MEDS: DEXTROSE 5%-0.9% NACL 1,000 ML IV SCH (20:56)
[2016-10-15] MEDS: SODIUM CHLORIDE FLUSH 0.9% 10 ML SYRINGE IVP PRN (21:37)
[2016-10-15 23:15] LABS: HCT - HEMATOCRIT 36.3 % (42.0-52.0); HGB - HEMOGLOBIN 12.1 g/dL (14.0-18.0); MEAN CORPUSCULAR HEMOGLOBIN 29.6 pg (27.0-31.0); MEAN CORPUSCULAR HGB CONC 33.3 g/dL (32.0-36.0); MEAN CORPUSCULAR VOLUME 88.8 fL (80.0-94.0); MEAN PLATELET VOLUME 7.1 fL (7.4-11.4); NEUTROPHILS # (AUTO) 8.4 10^3/uL (1.5-6.6); RED BLOOD COUNT 4.09 10^6/uL (4.70-6.10); RED CELL DISTRIBUTION WIDTH 14.5 % (12.0-15.0); WHITE BLOOD COUNT 12.7 x10^3/uL (4.8-10.8)
--- NOTE | 2016-10-16 00:15 | Ultrasound Preliminary Report ---
Exam: US Carotid Doppler Complete IMPRESSION: 1. Technically difficult exam with extensive shadowing plaque bilaterally and elevated velocities but normal velocity ratios. Cannot exclude stenosis of 50-69% on the left and greater than 70% on the ri ght but consider additional imaging for further evaluation. 2. Antegrade flow in both vertebral arteries. Validated velocity measurements with angiographic measurements and velocity criteria are extrapolated from diameter data as defined by the Society of Radiologists in Ultrasound Consensus Conference Radi ology 2003; 229;340-346. [facility] SITE ID: [id number]
--- NOTE | 2016-10-16 00:27 | Ultrasound Report ---
EXAM: CAROTID DOPPLER ULTRASOUND EXAM DATE: 10/15/2016 10:06 PM. CLINICAL HISTORY: Acute CVA. Aphasia. COMPARISON: None. TECHNIQUE: Real-time sonographic vascular imaging was performed by the chair pad maker through the [place] d arterial system with a linear transducer utilizing color-flow, Doppler flow and spectral analysis. Multiple medical customer service representative static images were saved for review. FINDINGS: Technically difficult exam. Extensive calcified shadowing plaque is seen bilaterally. There are eleva jeuss velocities which are greatest in the right mid internal carotid artery and left carotid bulb. How ever, velocities are also relatively high in the common carotid arteries bilaterally resulting in nor mal systolic velocity ratios. Antegrade flow is seen in both vertebral arteries. Right: RCCA Prox: PSV 97.4 cm/sec. RCCA Dist: PSV 156.9 cm/sec, EDV 31.7 cm/sec. RECA: PSV 115 cm/sec. R Bulb: PSV 98.9 cm/sec, EDV 17 cm/sec, ICA/CCA ratio 0.6. MERLINE Prox: PSV 192.5 cm/sec, EDV 11.9 cm/sec, ICA/CCA ratio 1.2. MERLINE Mid: PSV 258.8 cm/sec, EDV 1.4 cm/sec, ICA/CCA ratio 1.7 . MERLINE Dist: PSV 210 cm/sec, EDV 1.4 cm/sec, ICA/CCA ratio 1.3 . RVA: PSV 42 cm/sec. RVA flow direction: Antegrade. Left: LCCA Prox: PSV 162.2 cm/sec. LCCA Dist: PSV 146.5 cm/sec, EDV 21.6 cm/sec. LECA: PSV 63.4 cm/sec. L Bulb: PSV 186.7 cm/sec, EDV 2.5 cm/sec, ICA/CCA ratio 1.3. LICA Prox: PSV 144.9 cm/sec, EDV 24.9 cm/sec, ICA/CCA ratio 1.0 . LICA Mid: PSV 105 cm/sec, EDV 1.6 cm/sec, ICA/CCA ratio 0.7 . LICA Dist: PSV 132.1 cm/sec, EDV 13.9 cm/sec, ICA/CCA ratio 0.9 . LVA: PSV 70.3 cm/sec. LVA flow direction: Antegrade. Other: None. IMPRESSION: 1. Technically difficult exam with extensive shadowing plaque bilaterally and elevated velocities but normal velocity ratios. Cannot exclude stenosis of 50-69% on the left and greater than 70% on the ri ght but consider additional imaging for further evaluation. 2. Antegrade flow in both vertebral arteries. Validated velocity measurements with angiographic measurements and velocity criteria are extrapolated from diameter data as defined by the Society of Radiologists in Ultrasound Consensus Conference Radi ology 2003; 229;340-346. [facility] Referring Provider Line: [phone] SITE ID: [id number]
[2016-10-16] MEDS: DEXTROSE 5%-0.9% NACL 1,000 ML IV SCH ×3 (05:02→21:05)
[2016-10-16 06:21] LABS: HCT - HEMATOCRIT 36.7 % (42.0-52.0); HGB - HEMOGLOBIN 12.1 g/dL (14.0-18.0); MEAN CORPUSCULAR HEMOGLOBIN 29.6 pg (27.0-31.0); MEAN CORPUSCULAR HGB CONC 32.8 g/dL (32.0-36.0); MEAN CORPUSCULAR VOLUME 90.3 fL (80.0-94.0); NEUTROPHILS # (AUTO) 8.5 10^3/uL (1.5-6.6); RED BLOOD COUNT 4.07 10^6/uL (4.70-6.10); RED CELL DISTRIBUTION WIDTH 14.3 % (12.0-15.0); WHITE BLOOD COUNT 13.2 x10^3/uL (4.8-10.8)
[2016-10-16 06:31] LABS: CALCIUM 8.4 mg/dL (8.5-10.3); CREATININE 1.7 mg/dL (0.6-1.2); MAGNESIUM 1.8 mg/dL (1.7-2.8); POTASSIUM 3.5 mmol/L (3.5-5.0)
[2016-10-16] MEDS: SODIUM CHLORIDE FLUSH 0.9% 10 ML SYRINGE IVP SCH ×3 (06:37→21:06)
[2016-10-16] MEDS: PANTOPRAZOLE 40 MG VIAL IVP SCH ×2 (09:54→21:06)
[2016-10-16] MEDS: METOPROLOL 5 MG/5 ML VIAL IVP SCH ×2 (09:58→21:06)
[2016-10-16] MEDS: ASPIRIN 300 MG SUPP PR SCH (10:11)
--- NOTE | 2016-10-16 11:56 | PROVIDER PROGRESS NOTE ---
Assessment/Plan - Problem List (1) Cerebrovascular accident (CVA) Qualifiers: CVA mechanism: embolism Precerebral and cerebral artery: middle cerebral artery Laterality of affected vessel: left Qualified Code(s): I63.412 - Cerebral infarction due to embolism of left middle cerebral artery Assessment/Plan: Pt answered me with one-word appropriate answer. He is OOB in chair and alert per staff. 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 Extensive subacute ischemic stroke. Atrophy. Echo showed normal LEF, severely dilated LA and RA. Carotid Doppler shoed moderate bilateral plaque and stenoses. Plan: PT and OT eval for Rehab plan and placement. Start ASA ME. Await swallowing eval today for po meds and diet start. (2) Chronic a-fib Assessment/Plan: Pt is on low dose of iv B-tessa. Rate is controlled. Chronic Afib with very dilated left and right atria is likely source of clot and etiology of acute CVA, Plan: Will resume po B-tessa if he passes his swallowing eval. Pt to start ASA. Pt cannot be on anticoagulant for 2 mos (due to CVA size) or indefinetly (due to recurrent GI bleeds when he was on Coumadin. (3) HTN (hypertension) Qualifiers: Hypertension type: essential hypertension Qualified Code(s): I10 - Essential (primary) hypertension Assessment/Plan: Permissive HTN allowed during acute CVA to allow perfusion.Continue to monitor VS. (4) Acute on chronic renal insufficiency Assessment/Plan: Improving with hydration. (5) Agitation Assessment/Plan: More stable today with order for low dose Ativan parenterally. (6) Hypothyroidism Qualifiers: Hypothyroidism type: acquired Qualified Code(s): E03.9 - Hypothyroidism, unspecified Assessment/Plan: Cannot resume Synthroid til cleared by swallowing eval. (7) Gastrointestinal bleed Qualifiers: GI bleed type/associated pathology: unspecified gastrointestinal hemorrhage type Qualified Code(s): K92.2 - Gastrointestinal hemorrhage, unspecified Assessment/Plan: No further maroon stools reported. Awaiting hemeoccult stool exam with next BM. - Current Meds Current Meds: Current Medications Generic Name Dose Route Start Last Admin Trade Name Freq PRN Reason Stop Dose Admin Aspirin 300 mg 10/16/16 09:00 10/16/16 10:11 ME 300 mg DAILY ERNA Administration Dextrose/Sodium Chloride 1,000 mls @ 125 mls/hr 10/15/16 21:00 10/16/16 05:02 D5ns IV 125 mls/hr .Q8H ERNA Administration Metoprolol Tartrate 2.5 mg 10/16/16 09:00 10/16/16 09:58 Lopressor Inj IVP 2.5 mg Q12H ERNA Administration Mineral Oil 1 applic 10/14/16 21:00 10/15/16 21:38 [place] TOP 1 applic BID ERNA Administration Pantoprazole Sodium 40 mg 10/15/16 09:00 10/16/16 09:54 Protonix IVP 40 mg BID ERNA Administration Sodium Chloride 10 ml 10/14/16 17:02 10/15/16 21:37 Normal Saline Flush 0.9% IVP 10 ml PRN PRN Administration NEEDED PER PROVIDER ORDERS Sodium Chloride 10 ml 10/14/16 22:00 10/16/16 06:37 Normal Saline Flush 0.9% IVP 10 ml Q8HR ERNA Administration - Lab Result Fish Bone Diagrams: 10/16/16 06:12 10/16/16 06:12 - Additional Planning My Orders: My Active Orders 10/15/16 12:00 Echo [Echo Transthoracic Complete] [ECHO] Routine 10/15/16 16:00 LORazepam INJ [Ativan Inj] 0.5 mg IVP Q4HR PRN 10/16/16 Clinical Swallow Eval w/Modified ST [ST] Routine Evaluate and Treat OT [OT] Routine Evaluate and Treat PT [PT] Routine 10/16/16 08:45 Wound Consult MAC [MAC] Routine 10/16/16 09:00 Aspirin Supp 300 mg ME DAILY Metoprolol Inj [Lopressor Inj] 2.5 mg IVP Q12H 10/16/16 12:00 NPO [DIET] Objective Vital Signs: Vital Signs - 24 hr 10/15/16 10/15/16 10/15/16 12:00 12:45 13:48 Temperature 37 C 37.2 C Heart Rate [ 99 102 H 86 Monitoring electrodes] Respiratory 20 17 20 Rate Blood Pressure Blood Pressure [Left Brachial artery] Blood Pressure 149/85 H 158/89 H 135/88 H [Right Ankle] Blood Pressure [Right Brachial artery] O2 Saturation 96 93 96 10/15/16 10/15/16 10/15/16 15:00 17:09 18:10 Temperature 37.1 C 37.2 C Heart Rate [ 113 H 86 91 Monitoring electrodes] Respiratory 20 12 17 Rate Blood Pressure Blood Pressure 134/92 H [Left Brachial artery] Blood Pressure 167/82 H 129/73 [Right Ankle] Blood Pressure [Right Brachial artery] O2 Saturation 95 99 96 10/15/16 10/15/16 10/15/16 18:56 19:58 20:13 Temperature 37.0 C 37.0 C Heart Rate [ 110 H 85 115 H Monitoring electrodes] Respiratory 22 24 15 Rate Blood Pressure Blood Pressure 161/73 H 113/100 H 113/100 H [Left Brachial artery] Blood Pressure [Right Ankle] Blood Pressure [Right Brachial artery] O2 Saturation 94 94 93 10/15/16 10/15/16 10/15/16 21:28 22:00 23:07 Temperature 36.8 C 38.0 C H Heart Rate [ 97 107 H 99 Monitoring electrodes] Respiratory 22 24 18 Rate Blood Pressure Blood Pressure [Left Brachial artery] Blood Pressure [Right Ankle] Blood Pressure 138/89 H 146/88 H 145/69 H [Right Brachial artery] O2 Saturation 96 95 95 10/16/16 10/16/16 10/16/16 00:00 01:00 02:00 Temperature 37.7 C H Heart Rate [ 101 H 99 99 Monitoring electrodes] Respiratory 23 23 25 H Rate Blood Pressure Blood Pressure [Left Brachial artery] Blood Pressure [Right Ankle] Blood Pressure 162/83 H 136/76 H 164/77 H [Right Brachial artery] O2 Saturation 94 93 94 10/16/16 10/16/16 10/16/16 03:00 04:00 05:00 Temperature 37.8 C H Heart Rate [ 110 H 85 79 Monitoring electrodes] Respiratory 20 21 20 Rate Blood Pressure Blood Pressure [Left Brachial artery] Blood Pressure [Right Ankle] Blood Pressure 173/82 H 158/81 H 145/89 H [Right Brachial artery] O2 Saturation 94 95 95 10/16/16 10/16/16 10/16/16 06:00 07:00 08:00 Temperature 36.9 C Heart Rate [ 110 H 81 85 Monitoring electrodes] Respiratory 20 18 18 Rate Blood Pressure Blood Pressure [Left Brachial artery] Blood Pressure [Right Ankle] Blood Pressure 169/96 H 153/78 H 157/85 H [Right Brachial artery] O2 Saturation 96 95 97 08/02/17 08/02/17 08/02/17 08:48 09:58 10:00 Temperature Heart Rate [ 85 80 Monitoring electrodes] Respiratory 19 20 Rate Blood Pressure 136/71 H Blood Pressure [Left Brachial artery] Blood Pressure [Right Ankle] Blood Pressure 140/74 H 155/88 H [Right Brachial artery] O2 Saturation 98 94 10/16/16 11:00 Temperature Heart Rate [ 81 Monitoring electrodes] Respiratory 20 Rate Blood Pressure Blood Pressure [Left Brachial artery] Blood Pressure [Right Ankle] Blood Pressure 149/82 H [Right Brachial artery] O2 Saturation 95 Oxygen O2 Source Room air I&O (Last 24 Hrs): Intake and Output Totals x24h 10/14/16 10/15/16 10/16/16 23:59 23:59 23:59 Intake Total 500 2225 1379 Balance 500 2225 1379 - Results Results: Laboratory Results WBC 13.2 x10^3/uL (4.8-10.8) H 10/16/16 06:12 RBC 4.07 10^6/uL (4.70-6.10) L 10/16/16 06:12 Hgb 12.1 g/dL (14.0-18.0) L 10/16/16 06:12 Hct 36.7 % (42.0-52.0) L 10/16/16 06:12 MCV 90.3 fL (80.0-94.0) 10/16/16 06:12 MCH 29.6 pg (27.0-31.0) 10/16/16 06:12 MCHC 32.8 g/dL (32.0-36.0) 10/16/16 06:12 RDW 14.3 % (12.0-15.0) 10/16/16 06:12 Plt Count 242 10^3/uL (130-450) 10/16/16 06:12 MPV 7.0 fL (7.4-11.4) L 10/16/16 06:12 Neut # 8.5 10^3/uL (1.5-6.6) H 10/16/16 06:12 Lymph # 1.9 10^3/uL (1.5-3.5) 10/15/16 05:01 [place] # 1.0 10^3/uL (0.0-1.0) 10/15/16 05:01 Eos # 0.4 10^3/uL (0.0-0.7) 10/15/16 05:01 Baso # 0.1 10^3/uL (0.0-0.1) 10/15/16 05:01 Absolute Nucleated RBC 0.00 x10^3/uL 10/15/16 05:01 Nucleated RBCs 0.0 /100WBC 10/15/16 05:01 Whole Blood INR 1.2 (0.8-1.2) 10/14/16 16:25 Sodium 139 mmol/L (135-145) 10/16/16 06:12 Potassium 3.5 mmol/L (3.5-5.0) 10/16/16 06:12 Chloride 109 mmol/L (101-111) 10/16/16 06:12 Carbon Dioxide 22 mmol/L (21-32) 10/16/16 06:12 Anion Gap 8.0 (6-13) 10/16/16 06:12 BUN 24 mg/dL (6-20) H 10/16/16 06:12 Creatinine 1.7 mg/dL (0.6-1.2) H 10/16/16 06:12 Estimated GFR (MDRD) 38 (>89) L 10/16/16 06:12 Glucose 132 mg/dL (70-100) H 10/16/16 06:12 Calcium 8.4 mg/dL (8.5-10.3) L 10/16/16 06:12 Magnesium 1.8 mg/dL (1.7-2.8) 10/16/16 06:12 Total Bilirubin 0.8 mg/dL (0.2-1.0) 10/14/16 16:40 AST 16 IU/L (10-42) 10/14/16 16:40 ALT 12 IU/L (10-60) 10/14/16 16:40 Alkaline Phosphatase 68 IU/L (42-121) 10/14/16 16:40 Total Protein 7.8 g/dL (6.7-8.2) 10/14/16 16:40 Albumin 4.0 g/dL (3.2-5.5) 10/14/16 16:40 Globulin 3.8 g/dL (2.1-4.2) 10/14/16 16:40 Albumin/Globulin Ratio 1.1 (1.0-2.2) 10/14/16 16:40 Lipase 41 U/L (22-51) 10/14/16 16:40 - Procedures Procedures: Procedures EXCISION OF ASCENDING COLON, ENDO (03/27/16) EXCISION OF RECTUM, ENDO (03/27/16) EXCISION OF SIGMOID COLON, ENDO (03/19/16) REPLACEMENT OF RIGHT LENS WITH SYNTH SUB, PERC APPROACH (07/06/15) TRANSFUSE NONAUT FROZEN PLASMA IN PERIPH VEIN, PERC (03/27/16) TRANSFUSE NONAUT RED BLOOD CELLS IN PERIPH VEIN, PERC (03/27/16)
[2016-10-16] MEDS: MIN OIL/DIMETHICON/COCONUT OIL 92 GM TUBE TOP SCH ×2 (14:09→21:05)
[2016-10-16] MEDS: SODIUM CHLORIDE FLUSH 0.9% 10 ML SYRINGE IVP PRN (21:06)
[2016-10-17] MEDS: DEXTROSE 5%-0.9% NACL 1,000 ML IV SCH ×3 (05:25→20:37)
[2016-10-17] MEDS: SODIUM CHLORIDE FLUSH 0.9% 10 ML SYRINGE IVP SCH ×3 (05:25→21:34)
[2016-10-17] MEDS: METOPROLOL 5 MG/5 ML VIAL IVP SCH ×2 (09:40→21:33)
[2016-10-17] MEDS: PANTOPRAZOLE 40 MG VIAL IVP SCH ×2 (09:42→21:34)
[2016-10-17] MEDS: ASPIRIN 300 MG SUPP PR SCH (11:36)
[2016-10-17] MEDS: MIN OIL/DIMETHICON/COCONUT OIL 92 GM TUBE TOP SCH ×2 (11:36→21:34)
--- NOTE | 2016-10-17 15:25 | PROVIDER PROGRESS NOTE ---
Subjective - Subjective Subjective: Pt was able to turn head to the right today and lightly squeezed with his right hand Objective - Vital Signs/Intake & Output Vital Signs: Vital Signs x48h Temp Pulse Resp BP BP Pulse Ox 10/17/16 14:48 36.6 C 81 18 142/77 H 98 10/17/16 13:52 81 22 164/80 H 100 10/17/16 12:56 36.6 C 90 20 148/74 H 98 10/17/16 12:00 36.7 C 75 24 140/82 H 98 10/17/16 10:45 36.8 C 80 22 128/78 97 10/17/16 09:46 69 21 134/73 H 97 10/17/16 09:40 131/72 H 10/17/16 09:00 72 20 135/68 H 96 10/17/16 07:48 36.8 C 79 11 L 137/87 H 98 Intake & Output: Intake & Output 10/14/16 10/15/16 10/16/16 10/17/16 23:59 23:59 23:59 23:59 Intake Total 500 2225 2629 1850 Balance 500 2225 2629 1850 - Objective General Appearance: positive: No acute distress (Weak cough) Respiratory: positive: No respiratory distress Cardiovascular: positive: No murmur Abdomen: positive: Non-tender Extremities: positive: No pedal edema - Lab Results Fish Bones: 10/16/16 06:12 10/16/16 06:12 Assessment/Plan - Problem List (1) Cerebrovascular accident (CVA) Impression: Assessment/Plan: Brain MRI showed: 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 Extensive subacute ischemic stroke. Atrophy. Echo showed normal LEF, severely dilated LA and RA. Carotid Doppler shoed moderate bilateral plaque and stenoses. Plan: PT and OT eval for Rehab plan and placement. Pt did not pass swallowing eval again today. Pt will need ng tube or PEG or tpn for nutrition. Continue ASA GA. Qualifiers: CVA mechanism: embolism Precerebral and cerebral artery: middle cerebral artery Laterality of affected vessel: left Qualified Code(s): I63.412 - Cerebral infarction due to embolism of left middle cerebral artery (2) Chronic a-fib Impression: Pt is on low dose of iv B-tessa. Rate is controlled. Chronic Afib with very dilated left and right atria is likely source of clot and etiology of acute CVA, Plan: Pt cannot be on anticoagulant for 2 mos (due to CVA size) or indefinetly (due to recurrent GI bleeds when he was on Coumadin. (3) HTN (hypertension) Impression: Controlled Qualifiers: Hypertension type: essential hypertension Qualified Code(s): I10 - Essential (primary) hypertension (4) Acute on chronic renal insufficiency Impression: Improving with hydration (5) Hypothyroidism Impression: Cannot resume Synthroid til cleared by swallowing eval. Qualifiers: Hypothyroidism type: acquired Qualified Code(s): E03.9 - Hypothyroidism, unspecified (6) Gastrointestinal bleed Impression: No evidence of bleed. H/H stable. Qualifiers: GI bleed type/associated pathology: unspecified gastrointestinal hemorrhage type Qualified Code(s): K92.2 - Gastrointestinal hemorrhage, unspecified (7) Leukocytosis Impression: Rising WBCs. No fever. Pt noted to have a cough and unable to clear secretions. Will check CXR for aspiration pneumonia
--- NOTE | 2016-10-17 17:20 | XRAY Report ---
FRONTAL CHEST: 10/17/2016 CLINICAL INDICATION: CVA, possible aspiration, cough. Frontal view of the chest demonstrates a normal cardiac silhouette. There is a patchy left basilar i nfiltrate. No effusion or pneumothorax is present. IMPRESSION: PATCHY LEFT BASILAR INFILTRATE. JOB #: [id number] EXT JOB #:[id number]
[2016-10-17] MEDS: SODIUM CHLORIDE FLUSH 0.9% 10 ML SYRINGE IVP PRN (21:35)
[2016-10-18] MEDS: DEXTROSE 5%-0.9% NACL 1,000 ML IV SCH ×2 (06:29→22:40)
[2016-10-18] MEDS: SODIUM CHLORIDE FLUSH 0.9% 10 ML SYRINGE IVP SCH ×3 (06:29→21:05)
[2016-10-18 06:37] LABS: BASOPHILS # (AUTO) 0.1 10^3/uL (0.0-0.1); BASOPHILS % (AUTO) 1.1 %; EOSINOPHILS # (AUTO) 0.5 10^3/uL (0.0-0.7); EOSINOPHILS % (AUTO) 4.1 %; HCT - HEMATOCRIT 35.7 % (42.0-52.0); HGB - HEMOGLOBIN 11.7 g/dL (14.0-18.0); LYMPHOCYTES # (AUTO) 2.6 10^3/uL (1.5-3.5); LYMPHOCYTES % (AUTO) 19.8 %; MEAN CORPUSCULAR HGB CONC 32.9 g/dL (32.0-36.0); MEAN CORPUSCULAR VOLUME 90.9 fL (80.0-94.0); MEAN PLATELET VOLUME 7.7 fL (7.4-11.4); MONOCYTES # (AUTO) 1.4 10^3/uL (0.0-1.0); MONOCYTES % (AUTO) 11.1 %; NEUTROPHILS # (AUTO) 8.3 10^3/uL (1.5-6.6); NEUTROPHILS % (AUTO) 63.9 %; RED BLOOD COUNT 3.92 10^6/uL (4.70-6.10); UNCORRECTED WHITE BLOOD COUNT 12.9 x10^3/uL; WHITE BLOOD COUNT 12.9 x10^3/uL (4.8-10.8)
[2016-10-18 06:47] LABS: ALBUMIN/GLOBULIN RATIO 0.9 (1.0-2.2); BILIRUBIN,TOTAL 1.3 mg/dL (0.2-1.0); CALCIUM 8.1 mg/dL (8.5-10.3); CREATININE 1.5 mg/dL (0.6-1.2); MAGNESIUM 1.6 mg/dL (1.7-2.8); POTASSIUM 3.4 mmol/L (3.5-5.0); TOTAL PROTEIN 5.8 g/dL (6.7-8.2)
[2016-10-18] MEDS: ASPIRIN 300 MG SUPP PR SCH (08:22)
[2016-10-18] MEDS: POTASSIUM CHLOR 10 MEQ/100 ML 100 ML IV SCH ×4 (08:29→14:34)
[2016-10-18] MEDS: MIN OIL/DIMETHICON/COCONUT OIL 92 GM TUBE TOP SCH ×2 (08:30→21:04)
[2016-10-18] MEDS: METOPROLOL 5 MG/5 ML VIAL IVP SCH ×2 (08:30→21:08)
[2016-10-18] MEDS: PANTOPRAZOLE 40 MG VIAL IVP SCH ×2 (08:30→21:02)
[2016-10-18] MEDS ORDERED: VANCOMYCIN WEIGHT BASED (PHA COMPOUNDING) IV SCH (09:00)
[2016-10-18] MEDS ORDERED: DIATR MEGLU/DIATRIZOATE SODIUM 120 ML BOTTLE PO ONE (10:14)
[2016-10-18] MEDS: PIPERACILLIN/TAZOBACTAM 2.25 GM in SODIUM CHLORIDE 0.9% MINIBAG 100 ML IV SCH ×3 (10:38→21:02)
--- NOTE | 2016-10-18 10:53 | XRAY Report ---
FLUOROSCOPICALLY-GUIDED FEEDING TUBE PLACEMENT: 10/18/2016 CLINICAL INDICATION: CVA, aspiration. FINDINGS: Under fluoroscopic guidance, a weighted feeding tube was advanced through the nose with li docaine jelly, through the esophagus, the stomach, and into the duodenum. Positioning was confirmed with Gastrografin injection. The tube was secured, and the patient returned to his room. The patien t tolerated the procedure well. IMPRESSION: SUCCESSFUL PLACEMENT OF A POSTPYLORIC WEIGHTED FEEDING TUBE UNDER FLUOROSCOPY. FLUOROSCOPY TIME: 3 minutes 28 seconds; 1 spot image obtained. JOB #: [id number] EXT JOB #:[id number]
[2016-10-18] MEDS: VANCOMYCIN INJ 1 GM, VANCOMYCIN INJ 250 MG in SODIUM CHLORIDE 0.9% 250 ML IV SCH (11:15)
--- NOTE | 2016-10-18 11:54 | ADVANCE CARE PLANNING NOTE ---
Advance Care Planning - Date/Time Date: 10/18/16 Time: 13:00 - Purpose of encounter Text: Plan discussed with patient's regarding his wishes, since Pt cannot communicate now due to stroke. - Parties in attendance Parties in attendance: Pt in bed, non-communicative. at bedside. - Decisional capacity Decisional capacity of: Pt unable to make detailed decisions due to stroke, unable to communicate effectively due to stroke. - Subjective/Patient's story Subjective/Patient's story: The patient was independent until suffering a stroke which prompted this admission. He and his had previously discussed his wishes regarding type of care if he should become debilitated: he wants no CPR and wishes to be a DNR , DNI. He does wish to have other life-prolonging treatment such as iv hydration and medications, ng or PEG tube feedings, vidal catheter and central lines, also rehab. - Objective/Medical story Objective/Medical Story: Pt was in his usual state of health, ambulating and able to carry out ADLs independently. Since the stroke, he is unable to complete ADLs, has L gaze preference, R sided marked weakness of the arm and leg and marked dysarthria and inability to swallow without aspirating. - Goals of Care Goals of care determinations: Maximize functional capacity. - Plan Plan: Transfer to a Stroke Rehab center, continue nutrition via naso-gastric feeding tube, and meds via ng tube. If the patient is able to come home after rehab, this would be preferred per the , otherwise [facility] will be considered by the and family. - Code Status Code Status: Do Not Attempt Resuscitation - Time Spent on Advance Care Planning Time spent on advance care plannin min were spent on discussions and documentation.
--- NOTE | 2016-10-18 18:45 | PROVIDER PROGRESS NOTE ---
Assessment/Plan - Problem List (1) Cerebrovascular accident (CVA) Qualifiers: CVA mechanism: embolism Precerebral and cerebral artery: middle cerebral artery Laterality of affected vessel: left Qualified Code(s): I63.412 - Cerebral infarction due to embolism of left middle cerebral artery Assessment/Plan: Minimal improvement in arm and leg weakness and no improvement in speech or swallowing. Pt will need transfer for [place] stroke rehab. Discussed with and she is agreeable. Continue current meds. (2) Chronic a-fib Assessment/Plan: Rate is controlled. Pt on no anticoagulant due to GI bleeds approx. 6 mos ago and per directions from phone call to [facility] (large CVA may become hemorrhagic if use anticoagulants now). Continue present plan. (3) HTN (hypertension) Qualifiers: Hypertension type: essential hypertension Qualified Code(s): I10 - Essential (primary) hypertension Assessment/Plan: Controlled on treatment. (4) Acute on chronic renal insufficiency Assessment/Plan: Resolved (5) Hypothyroidism Qualifiers: Hypothyroidism type: acquired Qualified Code(s): E03.9 - Hypothyroidism, unspecified Assessment/Plan: Pt will now start Synthroid per Dobhoff tube. (6) Gastrointestinal bleed Qualifiers: GI bleed type/associated pathology: unspecified gastrointestinal hemorrhage type Qualified Code(s): K92.2 - Gastrointestinal hemorrhage, unspecified Assessment/Plan: Stable, no problem during this admission on antiplatelet agent only. (7) Leukocytosis Qualifiers: Leukocytosis type: bandemia Qualified Code(s): D72.825 - Bandemia Assessment/Plan: Fever overnight and CXR was consistent with HCAP. I updated to this new diagnosis. Will start iv antibiotics. (8) Malnutrition Assessment/Plan: Feeding tube placed today and will begin enteral nutrition. - Current Meds Current Meds: Current Medications Generic Name Dose Route Start Last Admin Trade Name Freq PRN Reason Stop Dose Admin Aspirin 300 mg 10/16/16 09:00 10/18/16 08:22 ID 300 mg DAILY ERNA Administration Dextrose/Sodium Chloride 1,000 mls @ 125 mls/hr 10/15/16 21:00 10/18/16 06:29 D5ns IV 125 mls/hr .Q8H ERNA Administration Piperacillin Sod/Tazobactam 100 mls @ 200 mls/hr 10/18/16 09:00 10/18/16 14:49 Sod 2.25 gm/ Sodium Chloride IV 200 mls/hr Q6H ERNA Administration Vancomycin HCl 1 gm/ 250 mls @ 167 mls/hr 10/18/16 11:00 10/18/16 11:15 Vancomycin HCl 250 mg/ Sodium IV 167 mls/hr Chloride Q24H ERNA Administration Metoprolol Tartrate 2.5 mg 10/16/16 09:00 10/18/16 08:30 Lopressor Inj IVP 2.5 mg Q12H ERNA Administration Mineral Oil 1 applic 10/14/16 21:00 10/18/16 08:30 Cavilon TOP 1 applic BID ERNA Administration Pantoprazole Sodium 40 mg 10/15/16 09:00 10/18/16 08:30 Protonix IVP 40 mg BID ERNA Administration Sodium Chloride 10 ml 10/14/16 17:02 10/17/16 21:35 Normal Saline Flush 0.9% IVP 30 ml PRN PRN Administration NEEDED PER PROVIDER ORDERS Sodium Chloride 10 ml 10/14/16 22:00 10/18/16 13:29 Normal Saline Flush 0.9% IVP 10 ml Q8HR ERNA Administration - Lab Result Fish Bone Diagrams: 10/18/16 06:18 10/21/16 05:21 - Additional Planning My Orders: My Active Orders 10/18/16 09:00 Piperacillin/Tazobactam [Zosyn] 2.25 gm Sodium Chloride 0.9% Minibag [Normal Saline 0.9% Minibag] 100 ml IV Q6H 10/18/16 11:00 Vancomycin Inj [Vancomycin] 1 gm Vancomycin Inj 250 mg Sodium Chloride 0.9% [ Normal Saline 0.9%] 250 ml IV Q24H 10/18/16 13:51 Daily Weight [RC] DAILY IO [RC] QSHIFT Tube Feeding [RC] QSHIFT 10/19/16 05:00 COMPREHENSIVE METABOLIC PANEL [CHEM] Timed MAGNESIUM [CHEM] Timed PHOSPHORUS [CHEM] Timed PREALBUMIN [CHEM] Timed 10/19/16 10:30 VANCOMYCIN TROUGH [CHEM] Timed 10/21/16 05:00 COMPREHENSIVE METABOLIC PANEL [CHEM] Timed MAGNESIUM [CHEM] Timed PHOSPHORUS [CHEM] Timed PREALBUMIN [CHEM] Timed 10/24/16 05:00 COMPREHENSIVE METABOLIC PANEL [CHEM] Timed MAGNESIUM [CHEM] Timed PHOSPHORUS [CHEM] Timed PREALBUMIN [CHEM] Timed Subjective - Subjective Patient Reports: Other (Improved strenghth on right side, per PT and OT. was in room when he was being assessed by PT and OT.) Nursing Reports: Other (Fever overnight.) Objective Vital Signs: Vital Signs - 24 hr 10/17/16 10/17/16 10/17/16 19:04 21:05 21:33 Temperature 36.6 C 37.4 C Heart Rate [ 73 90 Monitoring electrodes] Respiratory 19 15 Rate Blood Pressure 164/82 H Blood Pressure 164/86 H 164/82 H [Right Brachial artery] O2 Saturation 99 97 10/18/16 10/18/16 10/18/16 00:00 01:00 04:00 Temperature 36.8 C 37.6 C H Heart Rate [ 81 89 75 Monitoring electrodes] Respiratory 20 23 20 Rate Blood Pressure Blood Pressure 165/63 H 143/85 H 154/78 H [Right Brachial artery] O2 Saturation 98 97 95 10/18/16 10/18/16 10/18/16 05:00 08:00 08:30 Temperature Heart Rate [ 77 82 Monitoring electrodes] Respiratory 21 19 Rate Blood Pressure 138/78 H Blood Pressure 130/59 L 138/78 H [Right Brachial artery] O2 Saturation 95 98 10/18/16 10/18/16 10/18/16 09:00 13:00 17:00 Temperature 37.7 C H 36.7 C Heart Rate [ 75 86 80 Monitoring electrodes] Respiratory 18 21 18 Rate Blood Pressure Blood Pressure 133/67 H 144/85 H 155/84 H [Right Brachial artery] O2 Saturation 96 96 95 Oxygen O2 Source Room air I&O (Last 24 Hrs): Intake and Output Totals x24h 10/16/16 10/17/16 10/18/16 23:59 23:59 23:59 Intake Total 2629 2745 2457 Output Total 1 Balance 2622 0961 2452 General: Alert HEENT: Other (Able to turn head bilaterally now, less L gaze preference) Neck: Supple Neuro: Speech Slurred (R sided weakness), Other Cardiovascular: Regular rate Respiratory: No respiratory distress, Other (Occais non-productive cough) Abdomen: Soft Extremities: No edema - Results Results: Laboratory Results WBC 12.9 x10^3/uL (4.8-10.8) H 10/18/16 06:18 RBC 3.92 10^6/uL (4.70-6.10) L 10/18/16 06:18 Hgb 11.7 g/dL (14.0-18.0) L 10/18/16 06:18 Hct 35.7 % (42.0-52.0) L 10/18/16 06:18 MCV 90.9 fL (80.0-94.0) 10/18/16 06:18 MCH 30.0 pg (27.0-31.0) 10/18/16 06:18 MCHC 32.9 g/dL (32.0-36.0) 10/18/16 06:18 RDW 14.0 % (12.0-15.0) 10/18/16 06:18 Plt Count 221 10^3/uL (130-450) 10/18/16 06:18 MPV 7.7 fL (7.4-11.4) 10/18/16 06:18 Neut # 8.3 10^3/uL (1.5-6.6) H 10/18/16 06:18 Lymph # 2.6 10^3/uL (1.5-3.5) 10/18/16 06:18 [place] # 1.4 10^3/uL (0.0-1.0) H 10/18/16 06:18 Eos # 0.5 10^3/uL (0.0-0.7) 10/18/16 06:18 Baso # 0.1 10^3/uL (0.0-0.1) 10/18/16 06:18 Absolute Nucleated RBC 0.00 x10^3/uL 10/18/16 06:18 Nucleated RBCs 0.0 /100WBC 10/18/16 06:18 Whole Blood INR 1.2 (0.8-1.2) 10/14/16 16:25 Sodium 138 mmol/L (135-145) 10/18/16 06:18 Potassium 3.4 mmol/L (3.5-5.0) L 10/18/16 06:18 Chloride 110 mmol/L (101-111) 10/18/16 06:18 Carbon Dioxide 23 mmol/L (21-32) 10/18/16 06:18 Anion Gap 5.0 (6-13) L 10/18/16 06:18 BUN 12 mg/dL (6-20) 10/18/16 06:18 Creatinine 1.5 mg/dL (0.6-1.2) H 10/18/16 06:18 Estimated GFR (MDRD) 44 (>89) L 10/18/16 06:18 Glucose 109 mg/dL (70-100) H 10/18/16 06:18 Calcium 8.1 mg/dL (8.5-10.3) L 10/18/16 06:18 Magnesium 1.6 mg/dL (1.7-2.8) L 10/18/16 06:18 Total Bilirubin 1.3 mg/dL (0.2-1.0) H 10/18/16 06:18 AST 24 IU/L (10-42) 10/18/16 06:18 ALT 15 IU/L (10-60) 10/18/16 06:18 Alkaline Phosphatase 55 IU/L (42-121) 10/18/16 06:18 Total Protein 5.8 g/dL (6.7-8.2) L 10/18/16 06:18 Albumin 2.8 g/dL (3.2-5.5) L 10/18/16 06:18 Globulin 3.0 g/dL (2.1-4.2) 10/18/16 06:18 Albumin/Globulin Ratio 0.9 (1.0-2.2) L 10/18/16 06:18 Lipase 41 U/L (22-51) 10/14/16 16:40 - Procedures Procedures: Procedures EXCISION OF ASCENDING COLON, ENDO (03/27/16) EXCISION OF RECTUM, ENDO (03/27/16) EXCISION OF SIGMOID COLON, ENDO (03/19/16) REPLACEMENT OF RIGHT LENS WITH SYNTH SUB, PERC APPROACH (07/06/15) TRANSFUSE NONAUT FROZEN PLASMA IN PERIPH VEIN, PERC (03/27/16) TRANSFUSE NONAUT RED BLOOD CELLS IN PERIPH VEIN, PERC (03/27/16)
[2016-10-18] MEDS ORDERED: POTASSIUM CHLOR 20 MEQ/100 ML 100 ML IV SCH (19:32)
[2016-10-18] MEDS ORDERED: MAGNESIUM SULFATE 2 GRAM 50 ML IV SCH (19:33)
[2016-10-19] MEDS: PIPERACILLIN/TAZOBACTAM 2.25 GM in SODIUM CHLORIDE 0.9% MINIBAG 100 ML IV SCH ×4 (02:46→21:36)
[2016-10-19 04:48] LABS: ALBUMIN/GLOBULIN RATIO 0.9 (1.0-2.2); BILIRUBIN,TOTAL 1.5 mg/dL (0.2-1.0); CALCIUM 8.1 mg/dL (8.5-10.3); CREATININE 1.6 mg/dL (0.6-1.2); MAGNESIUM 2.1 mg/dL (1.7-2.8); PHOSPHORUS 2.1 mg/dL (2.5-4.6); POTASSIUM 3.4 mmol/L (3.5-5.0); TOTAL PROTEIN 5.7 g/dL (6.7-8.2)
[2016-10-19] MEDS ORDERED: SODIUM CHLORIDE 0.9% 250 ML IV ONE (05:52)
[2016-10-19] MEDS ORDERED: POTASSIUM CHLORIDE 20 MEQ/15 ML UDC PO SCH (06:00)
[2016-10-19] MEDS ORDERED: POTASSIUM PHOSPHATE 15 MMOL in SODIUM CHLORIDE 0.9% 250 ML IV SCH (06:00)
[2016-10-19] MEDS: SODIUM CHLORIDE FLUSH 0.9% 10 ML SYRINGE IVP SCH ×3 (06:30→21:39)
[2016-10-19] MEDS: LEVOTHYROXINE 100 MCG TABLET NG SCH (06:31)
[2016-10-19] MEDS ORDERED: ASPIRIN EC 325 MG TABLET PO SCH (09:00)
[2016-10-19] MEDS ORDERED: POTASSIUM CHLORIDE INJ 40 MEQ in SODIUM CHLORIDE 0.9% 480 ML IV ONE (09:11)
[2016-10-19] MEDS: ASPIRIN 325 MG TABLET PO SCH (10:05)
[2016-10-19] MEDS: PANTOPRAZOLE 40 MG VIAL IVP SCH ×2 (10:05→21:39)
[2016-10-19] MEDS: METOPROLOL TARTRATE 50 MG TABLET PO SCH ×2 (10:06→21:38)
[2016-10-19] MEDS: SACCHAROMYCES BOULARDII 250 MG CAPSULE NG SCH ×2 (10:06→16:22)
[2016-10-19] MEDS: LACTATED RINGERS 1,000 ML IV SCH (10:12)
[2016-10-19] MEDS: VANCOMYCIN INJ 1 GM, VANCOMYCIN INJ 250 MG in SODIUM CHLORIDE 0.9% 250 ML IV SCH (12:07)
[2016-10-19] MEDS: MIN OIL/DIMETHICON/COCONUT OIL 92 GM TUBE TOP SCH ×2 (12:08→21:39)
--- NOTE | 2016-10-19 18:42 | PROVIDER PROGRESS NOTE ---
Assessment/Plan - Problem List (1) Cerebrovascular accident (CVA) Qualifiers: CVA mechanism: embolism Precerebral and cerebral artery: middle cerebral artery Laterality of affected vessel: left Qualified Code(s): I63.412 - Cerebral infarction due to embolism of left middle cerebral artery Assessment/Plan: Contibue plan for transfer to SNF for stroke rehab. (2) HCAP (healthcare-associated pneumonia) Assessment/Plan: No further fever. Continue antibiotics. (3) Malnutrition Assessment/Plan: Will advance Dobhoff tube feeds and allo some meds thriugh feeding tube. - Current Meds Current Meds: Current Medications Generic Name Dose Route Start Last Admin Trade Name Freq PRN Reason Stop Dose Admin Aspirin 325 mg 10/19/16 08:00 10/19/16 10:05 Anthony PO 325 mg DAILYWM ERNA Administration Piperacillin Sod/Tazobactam 100 mls @ 200 mls/hr 10/18/16 09:00 10/19/16 14:54 Sod 2.25 gm/ Sodium Chloride IV 200 mls/hr Q6H ERNA Administration Vancomycin HCl 1 gm/ 250 mls @ 167 mls/hr 10/18/16 11:00 10/19/16 12:07 Vancomycin HCl 250 mg/ Sodium IV 167 mls/hr Chloride Q24H ERNA Administration Lactated Ringer's 1,000 mls @ 60 mls/hr 10/19/16 10:00 10/19/16 10:12 Lr IV 60 mls/hr .[id number] ERNA Administration Levothyroxine Sodium 100 mcg 10/19/16 07:00 10/19/16 06:31 Synthroid NG 100 mcg QDAC ERNA Administration Metoprolol Tartrate 50 mg 10/19/16 10:00 10/19/16 10:06 Lopressor PO 50 mg BID ERNA Administration Mineral Oil 1 applic 10/14/16 21:00 10/19/16 12:08 Cavilon TOP 1 applic BID ERNA Administration Pantoprazole Sodium 40 mg 10/15/16 09:00 10/19/16 10:05 Protonix IVP 40 mg BID RENA Administration Saccharomyces Boulardii 250 mg 10/19/16 08:00 10/19/16 16:22 Florastor NG 250 mg BIDWM ERNA Administration Sodium Chloride 10 ml 10/14/16 17:02 10/17/16 21:35 Normal Saline Flush 0.9% IVP 30 ml PRN PRN Administration NEEDED PER PROVIDER ORDERS Sodium Chloride 10 ml 10/14/16 22:00 10/19/16 13:50 Normal Saline Flush 0.9% IVP 10 ml Q8HR ERNA Administration - Lab Result Fish Bone Diagrams: 10/18/16 06:18 10/19/16 02:57 - Additional Planning My Orders: My Active Orders 10/19/16 07:00 Levothyroxine [Synthroid] 100 mcg NG QDAC 10/19/16 08:00 Aspirin [Anthony] 325 mg PO DAILYWM Saccharomyces Boulardii [Florastor] 250 mg NG BIDWM 10/19/16 10:00 Lactated Ringers [Lr] 1,000 ml IV 60 mls/hr Metoprolol Tartrate [Lopressor] 50 mg PO BID 10/21/16 05:00 COMPREHENSIVE METABOLIC PANEL [CHEM] Timed MAGNESIUM [CHEM] Timed PHOSPHORUS [CHEM] Timed PREALBUMIN [CHEM] Timed 10/24/16 05:00 COMPREHENSIVE METABOLIC PANEL [CHEM] Timed MAGNESIUM [CHEM] Timed PHOSPHORUS [CHEM] Timed PREALBUMIN [CHEM] Timed Subjective - Subjective Patient Reports: Resting Comfortably Nursing Reports: Other (Pt was briefly agitated and tried to kick at RN.) Objective Vital Signs: Vital Signs - 24 hr 10/18/16 10/18/16 10/18/16 19:35 19:39 21:08 Temperature 37.2 C 37.2 C Heart Rate [ 79 79 Monitoring electrodes] Respiratory 19 19 Rate Blood Pressure 148/73 H Blood Pressure 171/86 H 171/86 H [Right Brachial artery] O2 Saturation 98 98 10/18/16 10/19/16 10/19/16 21:10 00:00 01:00 Temperature Heart Rate [ 78 72 73 Monitoring electrodes] Respiratory 20 17 18 Rate Blood Pressure Blood Pressure 142/78 H 156/74 H 139/73 H [Right Brachial artery] O2 Saturation 98 100 99 10/19/16 10/19/16 10/19/16 04:00 05:00 08:00 Temperature 36.8 C 36.7 C Heart Rate [ 92 75 76 Monitoring electrodes] Respiratory 18 20 25 H Rate Blood Pressure Blood Pressure 189/93 H 136/75 H 175/80 H [Right Brachial artery] O2 Saturation 96 93 97 10/19/16 10/19/16 10/19/16 09:00 10:06 13:00 Temperature 37.2 C Heart Rate [ 64 66 Monitoring electrodes] Respiratory 20 20 Rate Blood Pressure 156/92 H Blood Pressure 156/92 H 153/81 H [Right Brachial artery] O2 Saturation 97 97 10/19/16 10/19/16 17:00 18:00 Temperature Heart Rate [ 88 72 Monitoring electrodes] Respiratory 22 26 H Rate Blood Pressure Blood Pressure 163/79 H 154/95 H [Right Brachial artery] O2 Saturation 97 96 Oxygen O2 Source Room air I&O (Last 24 Hrs): Intake and Output Totals x24h 10/17/16 10/18/16 10/19/16 23:59 23:59 23:59 Intake Total 2745 2507 3260 Output Total 1 0 Balance 2745 2506 3260 General: Other (Slightly more alert, mostly naping) HEENT: Atraumatic, Mucous membr. moist/pink Neck: Supple Neuro: Focal Deficits Cardiovascular: Other (Irreg, irreg) Respiratory: No respiratory distress Abdomen: Soft, Other (Feeding tube working) - Results Results: Laboratory Results WBC 12.9 x10^3/uL (4.8-10.8) H 10/18/16 06:18 RBC 3.92 10^6/uL (4.70-6.10) L 10/18/16 06:18 Hgb 11.7 g/dL (14.0-18.0) L 10/18/16 06:18 Hct 35.7 % (42.0-52.0) L 10/18/16 06:18 MCV 90.9 fL (80.0-94.0) 10/18/16 06:18 MCH 30.0 pg (27.0-31.0) 10/18/16 06:18 MCHC 32.9 g/dL (32.0-36.0) 10/18/16 06:18 RDW 14.0 % (12.0-15.0) 10/18/16 06:18 Plt Count 221 10^3/uL (130-450) 10/18/16 06:18 MPV 7.7 fL (7.4-11.4) 10/18/16 06:18 Neut # 8.3 10^3/uL (1.5-6.6) H 10/18/16 06:18 Lymph # 2.6 10^3/uL (1.5-3.5) 10/18/16 06:18 [place] # 1.4 10^3/uL (0.0-1.0) H 10/18/16 06:18 Eos # 0.5 10^3/uL (0.0-0.7) 10/18/16 06:18 Baso # 0.1 10^3/uL (0.0-0.1) 10/18/16 06:18 Absolute Nucleated RBC 0.00 x10^3/uL 10/18/16 06:18 Nucleated RBCs 0.0 /100WBC 10/18/16 06:18 Whole Blood INR 1.2 (0.8-1.2) 10/14/16 16:25 Sodium 140 mmol/L (135-145) 10/19/16 02:57 Potassium 3.4 mmol/L (3.5-5.0) L 10/19/16 02:57 Chloride 110 mmol/L (101-111) 10/19/16 02:57 Carbon Dioxide 22 mmol/L (21-32) 10/19/16 02:57 Anion Gap 8.0 (6-13) 10/19/16 02:57 BUN 14 mg/dL (6-20) 10/19/16 02:57 Creatinine 1.6 mg/dL (0.6-1.2) H 10/19/16 02:57 Estimated GFR (MDRD) 41 (>89) L 10/19/16 02:57 Glucose 111 mg/dL (70-100) H 10/19/16 02:57 Calcium 8.1 mg/dL (8.5-10.3) L 10/19/16 02:57 Phosphorus 2.1 mg/dL (2.5-4.6) L 10/19/16 02:57 Magnesium 2.1 mg/dL (1.7-2.8) 10/19/16 02:57 Total Bilirubin 1.5 mg/dL (0.2-1.0) H 10/19/16 02:57 AST 26 IU/L (10-42) 10/19/16 02:57 ALT 20 IU/L (10-60) 10/19/16 02:57 Alkaline Phosphatase 53 IU/L (42-121) 10/19/16 02:57 Total Protein 5.7 g/dL (6.7-8.2) L 10/19/16 02:57 Albumin 2.7 g/dL (3.2-5.5) L 10/19/16 02:57 Globulin 3.0 g/dL (2.1-4.2) 10/19/16 02:57 Albumin/Globulin Ratio 0.9 (1.0-2.2) L 10/19/16 02:57 Prealbumin 16 mg/dL (18-45) L 10/19/16 02:57 Lipase 41 U/L (22-51) 10/14/16 16:40 Last Dose Date 10/18/2016 10/19/16 10:45 Last Dose Time 1115 10/19/16 10:45 Vancomycin Trough 7.3 ug/mL (5.0-15.0) 10/19/16 10:45 - Procedures Procedures: Procedures EXCISION OF ASCENDING COLON, ENDO (03/27/16) EXCISION OF RECTUM, ENDO (03/27/16) EXCISION OF SIGMOID COLON, ENDO (03/19/16) REPLACEMENT OF RIGHT LENS WITH SYNTH SUB, PERC APPROACH (07/06/15) TRANSFUSE NONAUT FROZEN PLASMA IN PERIPH VEIN, PERC (03/27/16) TRANSFUSE NONAUT RED BLOOD CELLS IN PERIPH VEIN, PERC (03/27/16)
[2016-10-19] MEDS: SODIUM CHLORIDE FLUSH 0.9% 10 ML SYRINGE IVP PRN (21:39)
[2016-10-20] MEDS: LACTATED RINGERS 1,000 ML IV SCH (02:35)
[2016-10-20] MEDS: PIPERACILLIN/TAZOBACTAM 2.25 GM in SODIUM CHLORIDE 0.9% MINIBAG 100 ML IV SCH ×3 (03:47→14:27)
[2016-10-20] MEDS: SODIUM CHLORIDE FLUSH 0.9% 10 ML SYRINGE IVP SCH ×2 (03:47→13:29)
[2016-10-20] MEDS: LEVOTHYROXINE 100 MCG TABLET NG SCH (06:29)
[2016-10-20 07:10] LABS: MAGNESIUM 1.9 mg/dL (1.7-2.8); PHOSPHORUS 2.9 mg/dL (2.5-4.6); POTASSIUM 3.8 mmol/L (3.5-5.0)
[2016-10-20 07:19] LABS: CALCIUM 8.3 mg/dL (8.5-10.3)
[2016-10-20 07:27] LABS: CALCIUM, IONIZED 1.12 mmol/L (1.15-1.33); VBG PH 7.475 (7.31-7.41)
[2016-10-20] MEDS: SACCHAROMYCES BOULARDII 250 MG CAPSULE NG SCH ×2 (08:44→16:40)
[2016-10-20] MEDS: PANTOPRAZOLE 40 MG VIAL IVP SCH (08:44)
[2016-10-20] MEDS: ASPIRIN 325 MG TABLET PO SCH (08:44)
[2016-10-20] MEDS: METOPROLOL TARTRATE 50 MG TABLET PO SCH (10:17)
[2016-10-20] MEDS: VANCOMYCIN INJ 1 GM, VANCOMYCIN INJ 250 MG in SODIUM CHLORIDE 0.9% 250 ML IV SCH (10:17)
--- NOTE | 2016-10-20 12:55 | Discharge Plan ---
Discharge Plan Disposition: 03 SNF DC/Xfer Condition: Serious Diet: Low Sodium (Dobhoff tube feeds) Activity Restrictions: Activity as Tolerated (Progress with Stroke Rehab as tolerated please) Shower Restrictions: Yes (No showering independantly) Driving Restrictions: Yes (No driving) Assistance Devices: Wheelchair Weight Bearing: Partial Weight Instruction Topics: Stroke Self Care No Smoking: If you smoke, Please STOP! Call for help.
[2016-10-20] MEDS: MIN OIL/DIMETHICON/COCONUT OIL 92 GM TUBE TOP SCH ×2 (13:29→23:34)
[2016-10-20] MEDS ORDERED: DEXTROSE 5%-0.45% NACL 1,000 ML IV SCH (17:00)
--- NOTE | 2016-10-20 17:19 | PROVIDER PROGRESS NOTE ---
Assessment/Plan - Problem List (1) Cerebrovascular accident (CVA) Qualifiers: CVA mechanism: embolism Precerebral and cerebral artery: middle cerebral artery Laterality of affected vessel: left Qualified Code(s): I63.412 - Cerebral infarction due to embolism of left middle cerebral artery Assessment/Plan: Continued minimal daily improvement in muscle strength from acute stroke. Continue with plan for transfer to SNF for stroke rehab, after a feeding tube is reinserted. (2) HCAP (healthcare-associated pneumonia) Assessment/Plan: Pt 's respiratory status is stable, less cough and secretions. Continue antibiotics for a 7-10 day total course. (3) Malnutrition Assessment/Plan: After pulling out his feeding tube, this will need to be replaced before transfer to SNF. He will need more free water per feeding tube due to hypernatremia. Will change iv fluids from LR to D51/2NS due to hypernatremia. - Current Meds Current Meds: Current Medications Generic Name Dose Route Start Last Admin Trade Name Freq PRN Reason Stop Dose Admin Aspirin 325 mg 10/19/16 08:00 10/20/16 08:44 Anthony PO 325 mg DAILYWM ERNA Administration Levothyroxine Sodium 100 mcg 10/19/16 07:00 10/20/16 06:29 Synthroid NG 100 mcg QDAC ERNA Administration Metoprolol Tartrate 50 mg 10/19/16 10:00 10/20/16 10:17 Lopressor PO 50 mg BID ERNA Administration Mineral Oil 1 applic 10/14/16 21:00 10/20/16 13:29 [place] TOP 1 applic BID ERNA Administration Saccharomyces Boulardii 250 mg 10/19/16 08:00 10/20/16 16:40 Florastor NG Not Given BIDWM ERNA Sodium Chloride 10 ml 10/14/16 17:02 10/19/16 21:39 Normal Saline Flush 0.9% IVP 10 ml PRN PRN Administration NEEDED PER PROVIDER ORDERS Sodium Chloride 10 ml 10/14/16 22:00 10/20/16 13:29 Normal Saline Flush 0.9% IVP 10 ml Q8HR ERNA Administration - Lab Result Fish Bone Diagrams: 10/18/16 06:18 10/20/16 06:49 - Additional Planning My Orders: My Active Orders 10/20/16 Feeding Tube Placement [FL] Routine 10/20/16 13:22 Discharge [RC] .ONCE 10/20/16 17:00 Dextrose 5%-0.45% NaCl [D5.45ns] 1,000 ml IV TKO 10/21/16 05:00 COMPREHENSIVE METABOLIC PANEL [CHEM] Timed MAGNESIUM [CHEM] Timed PHOSPHORUS [CHEM] Timed PREALBUMIN [CHEM] Timed 10/24/16 05:00 COMPREHENSIVE METABOLIC PANEL [CHEM] Timed MAGNESIUM [CHEM] Timed PHOSPHORUS [CHEM] Timed PREALBUMIN [CHEM] Timed Subjective - Subjective Nursing Reports: No Complaints (Just prior to transfer to SNF, pt pulled out his Dobhoff feeding tube. (Transfer was cancelled).) Objective Vital Signs: Vital Signs - 24 hr 10/19/16 10/19/16 10/19/16 18:00 20:00 21:00 Temperature 37.6 C H Heart Rate [ 72 66 97 Monitoring electrodes] Respiratory 26 H 23 20 Rate Blood Pressure Blood Pressure 154/95 H 170/81 H 163/69 H [Right Brachial artery] O2 Saturation 96 97 95 10/19/16 10/20/16 10/20/16 21:38 00:00 01:00 Temperature Heart Rate [ 70 79 Monitoring electrodes] Respiratory 23 25 H Rate Blood Pressure 161/78 H Blood Pressure 163/76 H 163/76 H [Right Brachial artery] O2 Saturation 98 99 10/20/16 10/20/16 10/20/16 04:00 05:00 08:00 Temperature 37.1 C Heart Rate [ 75 86 80 Monitoring electrodes] Respiratory 23 11 L 22 Rate Blood Pressure Blood Pressure 170/81 H 157/87 H 164/65 H [Right Brachial artery] O2 Saturation 96 98 95 10/20/16 10/20/16 10/20/16 09:00 10:17 13:00 Temperature 36.8 C Heart Rate [ 74 65 Monitoring electrodes] Respiratory 15 22 Rate Blood Pressure 163/75 H Blood Pressure 142/90 H 161/79 H [Right Brachial artery] O2 Saturation 97 99 Oxygen O2 Source Room air I&O (Last 24 Hrs): Intake and Output Totals x24h 10/18/16 10/19/16 10/20/16 23:59 23:59 23:59 Intake Total 2507 3760 1900 Output Total 1 0 0 Balance 2506 3760 1900 General: Cooperative HEENT: Mucous membr. moist/pink Neck: Supple Neuro: Disoriented, Other (Right sided weakness, slightly improved from yesterday.) Respiratory: No respiratory distress, Other (No rales or rhochi anteriorly.) Abdomen: Soft Extremities: No edema - Results Results: Laboratory Results WBC 12.9 x10^3/uL (4.8-10.8) H 10/18/16 06:18 RBC 3.92 10^6/uL (4.70-6.10) L 10/18/16 06:18 Hgb 11.7 g/dL (14.0-18.0) L 10/18/16 06:18 Hct 35.7 % (42.0-52.0) L 10/18/16 06:18 MCV 90.9 fL (80.0-94.0) 10/18/16 06:18 MCH 30.0 pg (27.0-31.0) 10/18/16 06:18 MCHC 32.9 g/dL (32.0-36.0) 10/18/16 06:18 RDW 14.0 % (12.0-15.0) 10/18/16 06:18 Plt Count 221 10^3/uL (130-450) 10/18/16 06:18 MPV 7.7 fL (7.4-11.4) 10/18/16 06:18 Neut # 8.3 10^3/uL (1.5-6.6) H 10/18/16 06:18 Lymph # 2.6 10^3/uL (1.5-3.5) 10/18/16 06:18 [place] # 1.4 10^3/uL (0.0-1.0) H 10/18/16 06:18 Eos # 0.5 10^3/uL (0.0-0.7) 10/18/16 06:18 Baso # 0.1 10^3/uL (0.0-0.1) 10/18/16 06:18 Absolute Nucleated RBC 0.00 x10^3/uL 10/18/16 06:18 Nucleated RBCs 0.0 /100WBC 10/18/16 06:18 Whole Blood INR 1.2 (0.8-1.2) 10/14/16 16:25 VBG pH 7.475 (7.31-7.41) H 10/20/16 06:49 Ionized Calcium 1.12 mmol/L (1.15-1.33) L 10/20/16 06:49 Sodium 140 mmol/L (135-145) 10/19/16 02:57 Potassium 3.8 mmol/L (3.5-5.0) 10/20/16 06:49 Chloride 110 mmol/L (101-111) 10/19/16 02:57 Carbon Dioxide 22 mmol/L (21-32) 10/19/16 02:57 Anion Gap 8.0 (6-13) 10/19/16 02:57 BUN 14 mg/dL (6-20) 10/19/16 02:57 Creatinine 1.6 mg/dL (0.6-1.2) H 10/19/16 02:57 Estimated GFR (MDRD) 41 (>89) L 10/19/16 02:57 Glucose 111 mg/dL (70-100) H 10/19/16 02:57 Calcium 8.3 mg/dL (8.5-10.3) L 10/20/16 06:49 Ionized Calcium YES 10/20/16 06:49 Phosphorus 2.9 mg/dL (2.5-4.6) 10/20/16 06:49 Magnesium 1.9 mg/dL (1.7-2.8) 10/20/16 06:49 Total Bilirubin 1.5 mg/dL (0.2-1.0) H 10/19/16 02:57 AST 26 IU/L (10-42) 10/19/16 02:57 ALT 20 IU/L (10-60) 10/19/16 02:57 Alkaline Phosphatase 53 IU/L (42-121) 10/19/16 02:57 Total Protein 5.7 g/dL (6.7-8.2) L 10/19/16 02:57 Albumin 2.8 g/dL (3.2-5.5) L 10/20/16 06:49 Globulin 3.0 g/dL (2.1-4.2) 10/19/16 02:57 Albumin/Globulin Ratio 0.9 (1.0-2.2) L 10/19/16 02:57 Prealbumin 16 mg/dL (18-45) L 10/19/16 02:57 Lipase 41 U/L (22-51) 10/14/16 16:40 Last Dose Date 10/18/2016 10/19/16 10:45 Last Dose Time 1115 10/19/16 10:45 Vancomycin Trough 7.3 ug/mL (5.0-15.0) 10/19/16 10:45 - Procedures Procedures: Procedures EXCISION OF ASCENDING COLON, ENDO (03/27/16) EXCISION OF RECTUM, ENDO (03/27/16) EXCISION OF SIGMOID COLON, ENDO (03/19/16) REPLACEMENT OF RIGHT LENS WITH SYNTH SUB, PERC APPROACH (07/06/15) TRANSFUSE NONAUT FROZEN PLASMA IN PERIPH VEIN, PERC (03/27/16) TRANSFUSE NONAUT RED BLOOD CELLS IN PERIPH VEIN, PERC (03/27/16)
[2016-10-21] MEDS: SODIUM CHLORIDE FLUSH 0.9% 10 ML SYRINGE IVP SCH ×2 (00:09→05:26)
[2016-10-21] MEDS: METOPROLOL 5 MG/5 ML VIAL IVP SCH ×2 (00:43→08:23)
[2016-10-21 06:30] LABS: ALBUMIN/GLOBULIN RATIO 0.9 (1.0-2.2); BILIRUBIN,TOTAL 1.2 mg/dL (0.2-1.0); CALCIUM 8.6 mg/dL (8.5-10.3); CREATININE 1.6 mg/dL (0.6-1.2); POTASSIUM 3.7 mmol/L (3.5-5.0); TOTAL PROTEIN 6.9 g/dL (6.7-8.2)
[2016-10-21] MEDS ORDERED: LEVOTHYROXINE 100 MCG VIAL IVP SCH (08:00)
[2016-10-21] MEDS: SODIUM CHLORIDE FLUSH 0.9% 10 ML SYRINGE IVP PRN (08:24)
[2016-10-21 12:57] VITALS: BP 169/68
[2016-10-21] MEDS ORDERED: DIATR MEGLU/DIATRIZOATE SODIUM 120 ML BOTTLE PO ONE ×2 (15:01)
--- NOTE | 2016-10-21 15:01 | Discharge Plan ---
Discharge Plan Disposition: 01 Home, Self Care Condition: Serious Prescriptions: Amox/Clav 500/125 [Augmentin] 1 each PO Q12H #14 tablet Aspirin EC [Ecotrin] 325 mg PO DAILY #30 tablet Polyethylene Glycol 3350 [Miralax] 17 gm PO DAILY #15 packet Pantoprazole Sodium [Protonix] 40 mg PO DAILY #30 tablet. Activity Restrictions: Activity as Tolerated (Progress with Stroke Rehab as tolerated please) Shower Restrictions: Yes (No showering independantly) Driving Restrictions: Yes (No driving) Assistance Devices: Wheelchair Weight Bearing: Partial Weight Instruction Topics: Stroke Self Care No Smoking: If you smoke, Please STOP! Call for help.
--- NOTE | 2016-10-21 15:54 | XRAY Report ---
FLUOROSCOPICALLY GUIDED FEEDING TUBE PLACEMENT: 10/21/2016 CLINICAL INDICATION: Feeding tube. FINDINGS: Under fluoroscopic guidance, a weighted feeding tube was directed through the right nares with lidocaine jelly. The tube was passed through the esophagus, through the stomach, and into the di stal duodenum. Gastrografin injection confirms intraluminal placement. IMPRESSION: PLACEMENT OF A WEIGHTED FEEDING TUBE INTO THE DISTAL DUODENUM. FLUOROSCOPY TIME: 6 MINUTES 3 SECONDS; 1 SPOT IMAGE OBTAINED. JOB #: [id number] EXT JOB #:[id number]
--- NOTE | 2016-10-24 06:34 | DISCHARGE SUMMARY ---
DATE OF ADMISSION: 10/14/2016 DATE OF DISCHARGE: 10/21/2016 CHIEF COMPLAINT: Sudden onset of dense right hemiplegia. DISCHARGE DIAGNOSES 1. Acute cerebrovascular accident, status post thrombolytics. 2. Chronic atrial fibrillation. 3. History of multiple gastrointestinal bleeds. 4. Healthcare-associated pneumonia. 5. Hypothyroidism. MEDICATIONS ON DISCHARGE 1. Iron sulfate. 2. Synthroid. 3. Ultram. 4. Ativan. 5. Augmentin. 6. Adult dose aspirin. 7. Miralax. 8. Protonix. ALLERGIES: NONE. HOSPITAL COURSE: This is an 86-year-old white male with history of hypothyroidism and chronic atrial fibrillation. He has had prior GI bleeds, the most recent approximately 6 months ago and, therefore, has not been on an anticoagulant. The patient was found by family members on the floor of his [facility] after being seen several hours previously in a normal state of health. He was unable to rise from he floor because of dense right-sided weakness, and was brought to the emergency room where he was di agnosed with an acute CVA. Higher level of care was consulted and thrombolytics were advised. The [facility] comfort agreed to administration of thrombolytics for acute stroke. The patient was then hospitalized in the intensive care unit. There was minimal improvement of the right-sided dense weakness. There was o ne reported maroon bowel movement. No further lower GI bleeding was noted. The patient was placed on aspirin. Per further neurology consultation by phone, no anticoagulants were advised because of risk of transforming the stroke to a hemorrhagic stroke. The patient did develop a fever and tachycardia a nd elevated white blood count, and was diagnosed with hospital-acquired pneumonia. He received IV ant ibiotics and improved. The patient failed multiple swallowing evaluations and was noticed to have poo r management of oral secretions. He required placement of a feeding tube under fluoroscopic guidance. Enteral feedings were started via the NG tube. IV antibiotics and other medications were changed to medications per NG tube. The patient was accepted in transfer to a stroke facility, but pulled out hi s NG tube and required 1 additional hospital stay for reinsertion of the feeding tube under fluorosco pic guidance. In the final 3 days of his hospital stay, he had slow improvement of right arm and righ t leg weakness. His swallowing remained poor. The patient previously had a DO NOT RESUSCITATE status, which was continued throughout this admission. The patient had advanced care planning discussion by his and hospital physician. The plan was to attempt to increase functional status of the patient by way of stroke rehabilitation. The DNR and DNI status were continued. RADIOLOGY STUDIES 1. Head CT at the time of admission: Asymmetric, increased density of the left middle cerebral artery . No intracranial hemorrhage, mass effect or localized edema. Chronic volume loss. 2. Brain MRI results: Subacute left MCA including anterior left temporal lobe, posterior left insula, retrolenticular left white matter, left basal ganglia ischemic stroke without hemorrhage or mass eff ect. Advanced chronic changes of the brain including marked generalized cortical atrophy and at least mild scattered white matter disease. 3. Carotid Doppler: Extensive shadowing plaque bilaterally and elevated velocities, but normal ratios . Stenosis of 50% to 69% on the left and greater than 70% on the right. Antegrade flow in both verteb ral arteries. 4. Tube placement: Placement of a weighted feeding tube into the distal duodenum. 5. Chest x-ray from 10/17/2016: Patchy left basilar infiltrate. 6. Echocardiogram from 10/14/2016: LVEF of 75% with severely increased left atrial size and right atr ial size. Trace mitral regurgitation, mild tricuspid regurgitation. Pulmonary artery systolic pressur e 49 mmHg - mildly elevated. No shunt at the level of the atrium by agitated saline study. Normal odessa meter of the ascending aorta, aortic arch, and inferior vena cava. PHYSICAL EXAMINATION ON DISCHARGE VITAL SIGNS: Chronic atrial fibrillation with a controlled rate of 70-90. Blood pressure 169/100. HEENT: Left-sided gaze preference. Moist oral mucosa. NECK: Negative carotid bruits bilaterally. LUNGS: Diminished breath sounds bilaterally on exam without rales. CARDIAC: No audible murmurs. ABDOMEN: Soft without rebound. EXTREMITIES: Trace pedal edema. NEUROLOGIC: The right arm had 1/5 strength. The right leg had 1/5 strength. His speech was dysarthric with 1 word answers that were appropriate only. DIETARY PLAN: Jevity per NG tube and low sodium diet. ACTIVITY RECOMMENDATIONS: Increase functional capacity as per stroke rehab care. TIME SPENT ON DISCHARGE: Greater than 60 minutes. FOLLOWUP APPOINTMENTS: Primary doctor and physician at [facility]. JOB #: [id number] EXT JOB #:[id number]
== END 2016-10-21 15:40 | disposition home or self-care (01) | DRG 64 ==
LOC: EDUNIT# → ED 16:22 → ICU 17:02 → MS3 10-20 18:10
PROVIDERS: ADMIT Specialist; ATTEND Internal Medicine
PROC: 3E03317 Introduction of Other Thrombolytic into Peripheral Vein, Percutaneous Approach (ICD-10-PCS; principal; 2016-10-14)
PROC: 0DH67UZ Insertion of Feeding Device into Stomach, Via Natural or Artificial Opening (ICD-10-PCS; 2016-10-18)
PROC: 0DH67UZ Insertion of Feeding Device into Stomach, Via Natural or Artificial Opening (ICD-10-PCS; 2016-10-21)
DX: I63.412 Cerebral infarction due to embolism of left middle cerebral artery (principal); J18.9 Pneumonia, unspecified organism; G81.91 Hemiplegia, unspecified affecting right dominant side; I10 Essential (primary) hypertension; I48.91 Unspecified atrial fibrillation; F03.91 Unspecified dementia, unspecified severity, with behavioral disturbance; K92.2 Gastrointestinal hemorrhage, unspecified; E46 Unspecified protein-calorie malnutrition; E87.0 Hyperosmolality and hypernatremia; R47.01 Aphasia; S51.011A Laceration without foreign body of right elbow, initial encounter; E03.9 Hypothyroidism, unspecified; M19.90 Unspecified osteoarthritis, unspecified site; H53.47 Heteronymous bilateral field defects; R29.727 NIHSS score 27; I48.2 Chronic atrial fibrillation; Y95 Nosocomial condition; Z66 Do not resuscitate; I12.9 Hypertensive chronic kidney disease with stage 1 through stage 4 chronic kidney disease, or unspecified chronic kidney disease; N18.9 Chronic kidney disease, unspecified; Z98.41 Cataract extraction status, right eye; Z96.1 Presence of intraocular lens; R29.810 Facial weakness; E66.3 Overweight; I65.22 Occlusion and stenosis of left carotid artery; D72.829 Elevated white blood cell count, unspecified; R47.81 Slurred speech; Z68.30 Body mass index [BMI] 30.0-30.9, adult
CPT/HCPCS: 36415; 43752; 70450; 70551; 71010; 80048; 80053; 82040; 82310; 82330; 83690; 83735; 84100; 84132; 84134; 85025; 85027; 85610; 87150; 93005; 93306; 93880; 96374; 96376; 99285; 99291

== ENCOUNTER 2016-10-21 16:27 | Outpatient (CLI) | payer MEDICARE | END 2016-10-21 16:28 | LOC: EMS 16:27 | PROVIDERS: ATTEND Surgery | DX: I63.9 Cerebral infarction, unspecified (principal) | CPT/HCPCS: A0425; A0428 ==

== ENCOUNTER 2016-12-25 12:30 | Outpatient (CLI) | payer MEDICARE ==
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
== END 2016-12-25 12:31 | disposition home or self-care (01) ==
LOC: PC 12:30
PROVIDERS: ATTEND Nurse Practitioner
DX: Z51.5 Encounter for palliative care (principal); F03.91 Unspecified dementia, unspecified severity, with behavioral disturbance; I48.2 Chronic atrial fibrillation; I69.351 Hemiplegia and hemiparesis following cerebral infarction affecting right dominant side; M81.0 Age-related osteoporosis without current pathological fracture; I10 Essential (primary) hypertension; E03.9 Hypothyroidism, unspecified; R63.4 Abnormal weight loss; R63.0 Anorexia; F32.9 Major depressive disorder, single episode, unspecified; I69.320 Aphasia following cerebral infarction; I69.391 Dysphagia following cerebral infarction; I69.322 Dysarthria following cerebral infarction; R13.10 Dysphagia, unspecified; Z91.14 Patient's other noncompliance with medication regimen; Z85.828 Personal history of other malignant neoplasm of skin; Z66 Do not resuscitate; Z99.3 Dependence on wheelchair; Z87.19 Personal history of other diseases of the digestive system
CPT/HCPCS: 99306

== ENCOUNTER 2017-01-01 08:00 | Outpatient (CLI) | payer MEDICARE ==
[2017-01-01 20:23] LABS: CALCIUM 9.5 mg/dL (8.5-10.3); CREATININE 1.8 mg/dL (0.6-1.2); POTASSIUM 3.8 mmol/L (3.5-5.0)
[2017-01-01 20:43] LABS: HEMOGLOBIN A1C 0.65 g/dL
== END 2017-01-01 08:01 | disposition home or self-care (01) ==
LOC: LAB.R 08:00
DX: I50.9 Heart failure, unspecified (principal); E03.9 Hypothyroidism, unspecified; E11.9 Type 2 diabetes mellitus without complications
CPT/HCPCS: 80048; 83036; 84443

== ENCOUNTER 2017-01-01 11:10 | Outpatient (CLI) | payer MEDICARE ==
--- NOTE | 2017-01-01 20:51 | CONSULTATION NOTE ---
Palliative Care Follow Up - Referral Referring Provider: Dr Ridley Time of Visit: 11:10 Referral setting: [facility] ([facility]) - Information Sources Records reviewed: RN notes reviewed, Previous records reviewed History/Review of Systems obtained from: Patient, Family, Nursing Exam limitations: Clinical condition (expressive aphasia s/p CVA, hard of hearing, dementia) - History of Present Illness Update Brief HPI Update: This is an 86-year-old gentleman with dementia who was hospitalized twice in March 2016 for GI bleeding related to Coumadin anticoagulation. 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 He contracted pneumonia during his hospitalization, failed multiple swallow evaluations and had an NG tube placed. He underwent stroke rehabilitation at [facility] for about a month, then transferred to [facility] on November 21 for further therapy. He was discharged from therapy last week, after not making progress. He has experienced significant functional decline since his stroke and now requires extensive assistance for transfers and activities of daily living. He does appear more alert and cooperative at today's visit. He continues to refuse medications more than half the time, but does without aggression, as reported by nursing. Due to his not taking medications regularly, his PCP discontinued some of his medications, and I also made adjustments, changing routine pain medication to PRN. He reports have difficulty urinating, although it is unclear if he completely understands or is able to hear the questions, and also it is difficult to interpret his responses due to his expressive aphasia. Nursing has seen no indication or signs of urinary retention, frequency, or pain. His nutrition input varies, from 100% to 50%, sometimes 25% or nothing. He has lost weight, baseline used to be around 185 lbs, dropping to 172.2 on 11/21 and 165.6 on 12/16. He is due to be weighed sometime today. His family reports he seems to enjoy the music sessions offered at the facility and they are requesting that staff make sure he is taken to them. He also expressed interest in joining a restorative exercise program. Social History - Living Situation Living arrangement: [facility] Living Situation: With caregiver(s) ( lives on [address]. His three adult children live in the region, but not on [address].) Medications/Allergies - Medications Home Medications: Ambulatory Orders Medication Instructions Recorded Confirmed Acetaminophen [Tylenol] 1 tab PO Q4H PRN MDD 3000mg 12/25/16 12/25/16 Acetaminophen [Tylenol] 2 tab PO Q4H PRN MDD 3000mg 12/25/16 12/25/16 Bisacodyl Supp [Dulcolax Supp] 10 mg MS DAILY PRN 12/25/16 01/01/17 LORazepam [Ativan] 0.25 mg PO BID 12/25/16 01/01/17 Senna [Senokot] 1 - 2 tab PO DAILY PRN 12/25/16 01/01/17 Magnesium Hydroxide [Milk of 30 ml PO DAILY PRN 12/26/16 01/01/17 Magnesia] LORazepam [Ativan] 0.25 mg PO BID PRN 01/01/17 01/01/17 - Allergies Allergies/Adverse Reactions: Allergies Allergy/AdvReac Type Severity Reaction Status Date / Time No Known Drug Allergies Allergy Verified 03/18/16 04:01 Review of Systems - Constitutional Constitutional: reports: Weakness, Poor appetite, Weight loss - Cardiovascular Cardiovascular: denies: Chest pain, Edema - Respiratory Respiratory: denies: Cough - Gastrointestinal Gastrointestinal: denies: Constipation, Change in bowel habits - Musculoskeletal Musculoskeletal: reports: Other (contracture R hand) - Neurological Neurological: reports: Focal weakness (right side hemiparesis s/p cva), Memory problems Physical Exam - Vital Signs Temperature: 98.4 F Pulse Rate: 86 O2 Saturation: 99 (room air) Blood Pressure: 115/60 - Physical Exam General Appearance: positive: No acute distress, Alert Eyes Bilateral: positive: EOMI, No lid inflammation, Conjunctivae nml, No scleral icterus ENT: positive: No signs of dehydration Neck: positive: Thyroid nml, No JVD, Trachea midline Cardiovascular: positive: Regular rate & rhythm, No murmur, No gallop Respiratory: positive: Chest non-tender, No respiratory distress, Breath sounds nml Skin: positive: No symptoms Extremities: positive: Nml appearance, No pedal edema Neurologic/Psychiatric: positive: Mood/affect nml, Disoriented to time, Slurred/ abnml speech Palliative Care - POLST Patient has POLST: Yes POLST Status: DNR, Comfort Measures Pain: No pain Drowsiness/Sedation: None Nausea: None Depression: Mild (1-3) Anxiety: Mild (1-3) Dyspnea: None Anorexia: Mild (1-3) Sleep: Sleeps well Constipation: No Feelings of wellbeing/Perceived Quality of Life: Comment (He appears more settled and less anxious and frustrated today) Performance Status: Current level of functioning: Significant functional decline, extensive assistance required with all ADLs, requires 2-person transfer, incontinent, wheelchair bound. Palliative Care Performance Status: 40% - Palliative Care Discussion: Who is present: The patient, his /DPANSHU Gibson, his daughter Princess, myself. Surrogate decision maker: Spouse/DPOA Paige Madera home [phone]. Requested to be 1st contact: Js Madera mobile [phone]. [email or web address]. 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 Js Bautista mobile [phone]. [email or web address]. Lives and works in [place], visits her parents on Wednesdays. Son Karson Madera, lives in [place], works in [employer]. Most important goals: For the patient, comfort and safety, no forced feedings. There are also safety concerns for his Paige, who has MS and is mobile via a motorized chair, and spends a significant amount of time alone in her home. Princess would like to continue the use of lorazepam to help alleviate the patient's anxiety and frustration. The patient appears to be less agitated and frustrated than previously, though it is questionable how much effect the lorazepam is having since the patient accepts it only sporadically. We will continue it for the present. A meeting with the palliative care social worker clinical is proposed to offer support, help clarify goals and look at various options for long-term care and assisted living, for patient and his , ideally something centrally located and convenient for the three siblings and parents. Impression and Recommendations - Palliative Care Impression: This is an 86-year-old gentleman with dementia and R-sided hemiplegia with expressive aphasia secondary to CVA from September 2016. He has declining functionality and weight loss following the CVA, but does not currently meet criteria for Hospice. Family would benefit from social work and palliative care support for longer term plans now that the patient is no longer receiving therapy and requires on-going significant caretaking and support. Recommendations/Counseling Done: Dementia with disturbance: Improved. Patient frequently refuses medications, including lorazepam 0.25mg BID, but continue this script for now. Daughter Princess agrees with this. Also add lorazepam 0.25mg (1/2 tab) BID as needed. Hypertension: PCP discontinued atenolol and Hctz due to non-adherence. Continue monitoring BP. Hypothyroidism: Levothyroxine 75mcg was dropped after his hospitalization, reason unknown. I faxed PCP on 12/26/16 with patient's current medication list, requesting he fax a new levothyroxine script to SNF if he wants to restart thyroid medication. Pain related to right side hemiparesis: Stop routine Tylenol due to non- adherence. Continue Tylenol 1-2 tabs q4h as needed. Advanced care planning: POLST in place, DNR and comfort measures. Palliative care social worker clinical will arrange for a meeting with family. Will schedule a follow up visit in two weeks. Time Spent: 45 minutes with greater than 50% spent in counseling, assessment, coordination of care and providing anticipatory guidance.
== END 2017-01-01 11:11 | disposition home or self-care (01) ==
LOC: PC 11:10
PROVIDERS: ATTEND Nurse Practitioner
DX: Z51.5 Encounter for palliative care (principal); F03.91 Unspecified dementia, unspecified severity, with behavioral disturbance; I10 Essential (primary) hypertension; E03.9 Hypothyroidism, unspecified; I69.351 Hemiplegia and hemiparesis following cerebral infarction affecting right dominant side; I69.320 Aphasia following cerebral infarction; Z66 Do not resuscitate; Z99.3 Dependence on wheelchair; Z91.14 Patient's other noncompliance with medication regimen
CPT/HCPCS: 99310